=== PATIENT | male | born 1950 | race Caucasian/White ===

== ENCOUNTER 2019-06-19 18:33 | Outpatient (RCR) | payer MEDICARE, SELFPAY ==
[2019-06-10] MEDS: MEROPENEM 1 GM in SODIUM CHLORIDE 0.9% IV 100 ML IVPB ×2 (06:46→18:02)
--- NOTE | 2019-06-10 08:38 | PC.NURSE ---
Patient was here for OP IV antibiotics. All teaching given with understanding. IV antibiotics administered see MAR and work list. Tolerated infusions well. Safe exit of hospital. Will return this evening for pm IV dose. Port left accessed.
--- NOTE | 2019-06-10 18:45 | PC.NURSE ---
Patient here to receive IV Antibiotic. Port site remains accessed. Dressing clean dry and intact. Site flushed well with Normal Saline, good blood return received. Patient tolerated Antibiotic well. Port flushed with 20 ml of normal saline after Antibiotic finished. Port site remains accessed. Pt. denies any questions or concerns at discharge. Pt. left ambulatory accompanied by . Patient to come back at 0700 tomorrow.
[2019-06-11 00:22] LABS: Glucose Point of Care 93 (65-105)
[2019-06-11] MEDS: MEROPENEM 1 GM in SODIUM CHLORIDE 0.9% IV 100 ML IVPB ×2 (07:26→18:36)
--- NOTE | 2019-06-11 09:41 | PC.NURSE ---
Patient here for IV antibiotics. Port accessed, occlusive dressing clean, dry, and intact. Port flushes easily with good blood return. Patient tolerated infusions well. Port flushed with 20mL NS. Swab cap replaced. Port remains accessed. Patient denies any questions or concerns. Patient left per ambulation accompanied by . Patient to return tonight for next infusion.
--- NOTE | 2019-06-11 19:16 | PC.NURSE ---
pt port flushed 20mL NS, no complaints, pt is coming at 7:30 on thursday, will leave note for day shift, left ambulatory with , no s/sx of reaction or distress
[2019-06-12] MEDS: MEROPENEM 1 GM in SODIUM CHLORIDE 0.9% IV 100 ML IVPB ×2 (07:40→18:26)
--- NOTE | 2019-06-12 10:05 | PCDIET ---
Patient here for IV antibiotics. Port accessed when patient arrived. Tolerated infusion well. Port deaccessed per sterile technique, cleaned per sterile technique and reaccessed per sterile technique with 20G x.75in powerloc needle. Flushes easily with good blood return. Flushed with 20ml NS. Swab cap placed. Patient left per self ambulation with . Will return tonight for next dose.
--- NOTE | 2019-06-12 19:23 | PC.NURSE ---
Infusion completed. Port flushed as ordered. Patient tolerated infusion well
[2019-06-13] MEDS: MEROPENEM 1 GM in SODIUM CHLORIDE 0.9% IV 100 ML IVPB ×2 (08:15→18:45)
[2019-06-13 08:51] LABS: Vancomycin Trough 21.2 ug/mL (10.0-15.0)
--- NOTE | 2019-06-13 10:32 | PC.NURSE ---
0800 PATIENT HERE FOR DAILY IV ANTIBIOTICS ORDERED. PORT ALREADY ACCESSED. NO CONCERNS VOICED. VANCOMYCIN TROUGH LEVEL DRAWN SENT TO LAB. RESULTS NOTED FAXED TO DR. TAVREA. PROCEED WITH TODAYS DOSE AND MAY CHANGE TOMORROWS PER DR. ASTORGA OFFICE. BOTH MENOPENEM AND VANCOMYCIN ADMINISTERED. SEE MAR. TOLERATED BOTH WELL. WILL BE BACK THIS EVENING FOR MENOPENEM.
--- NOTE | 2019-06-13 18:45 | PC.NURSE ---
Pt. here to receive IV ATB. Port site remains accessed. Dressing clean dry and intact. Pot site flushed well, good blood return receive. IV ATB infusing per order. Pt. denies any needs. Call light at side.
--- NOTE | 2019-06-13 19:32 | PC.NURSE ---
Infusion completed. Catheter flushed as ordered. No ASE noted or reported at this time
[2019-06-14] MEDS: MEROPENEM 1 GM in SODIUM CHLORIDE 0.9% IV 100 ML IVPB ×2 (07:42→18:42)
--- NOTE | 2019-06-14 09:35 | PC.NURSE ---
Patient here for meropenem and vancomycin IV antibiotics for this a.m. Port a cath site asystomatic of s/sx of infection. Both antibiotics administered. see MAR. Tolerated antibiotics well. Safe exit of hospital.
--- NOTE | 2019-06-14 18:47 | PC.NURSE ---
HERE FOR OP ABX, PORT PREVIOUSLY ACCESSED, FLUSHED WITH SALINE AND MERIPENEM STARTED ORDERED, TOLERATED WELL, CALL LIGHT IN REACH
--- NOTE | 2019-06-14 19:12 | PC.NURSE ---
Infusion finished without difficulty. Port flushed with 20ml NS then capped and remains accessed. Patient tolerated infusion well.
[2019-06-15] MEDS: MEROPENEM 1 GM in SODIUM CHLORIDE 0.9% IV 100 ML IVPB ×2 (09:07→18:38)
--- NOTE | 2019-06-15 11:13 | PC.NURSE ---
Patient was here for 2 IV antibiotics. No concerns today voiced. Both IV antibiotics administered as ordered. see MAR. Port a cath asystomatic of s/sx of infection. Port stays accessed. Will be back this evening for 1 antibiotic. Safe exit of hospital.
[2019-06-16] MEDS: MEROPENEM 1 GM in SODIUM CHLORIDE 0.9% IV 100 ML IVPB ×2 (07:54→18:39)
--- NOTE | 2019-06-16 19:24 | PC.NURSE ---
Infusion completed, flushed with 20ml saline, swab cap applied, pt tolerated tx well, ambulated off of the unit.
[2019-06-17] MEDS: MEROPENEM 1 GM in SODIUM CHLORIDE 0.9% IV 100 ML IVPB ×2 (08:48→18:44)
[2019-06-17 09:15] LABS: Vancomycin Trough 13.6 ug/mL (10.0-15.0)
--- NOTE | 2019-06-17 09:42 | PC.NURSE ---
mick trough drawn and faxed to his office. tolerating infusion.
[2019-06-18] MEDS: MEROPENEM 1 GM in SODIUM CHLORIDE 0.9% IV 100 ML IVPB ×2 (08:08→18:32)
--- NOTE | 2019-06-18 10:10 | PC.NURSE ---
Patient here for IV infusion of Antibiotics. Port site remains accessed. Site clean and dressing intact. Port flushed with 20ml of saline, good blood return received. Patient tolerated IV Antibiotics well. Site flushed with 20 ml of NS at end of infusions. Site remains accessed. Pt. denies any questions or concerns. Patient discharge, left hospital ambulatory.
--- NOTE | 2019-06-18 18:30 | PC.NURSE ---
Patient here to receive IV Antibiotic infusion. Port site remains accessed. Site flushed well, goo blood return recieved. Pt. sitting up in chair resting. Denies any needs at this time.
--- NOTE | 2019-06-18 19:15 | PC.NURSE ---
Patient tolerated infusion well. Port flushed with 20ml NS and capped.
[2019-06-19] MEDS: MEROPENEM 1 GM in SODIUM CHLORIDE 0.9% IV 100 ML IVPB ×2 (08:05→18:42)
--- NOTE | 2019-06-19 09:56 | PC.NURSE ---
Patient here for 2 IV anbiotics infusions. No concerns voiced. Port already accessed and asystomatic of s/sx of infection. Antibiotics administered see MAR. Tolerated infusion well. Safe exit of hospital.
--- NOTE | 2019-06-19 18:40 | PC.NURSE ---
Patient here to receive IV antibiotic infusion. Port site remains accessed. Site clean, dry and intact. Port flushed well, good blood return received. Antibiotic started per order. Pt. sitting up in chair resting, denies any needs. Call light at side.
--- NOTE | 2019-06-19 19:20 | PC.NURSE ---
IV antibiotic finished infusing. Patient tolerated well. Port flushed with 20ml NS and capped. Port remains accessed.
== END 2019-09-08 23:59 | disposition home or self-care (01) ==
LOC: CHSTREATRM 18:33
PROVIDERS: PCP Internal Medicine
DX: J12.1 Respiratory syncytial virus pneumonia (principal); J20.5 Acute bronchitis due to respiratory syncytial virus; Z94.2 Lung transplant status; Z48.24 Encounter for aftercare following lung transplant
CPT/HCPCS: 36415; 80202; 96365; 96366; 96367; J0256; J2185; J3370

== ENCOUNTER 2019-06-20 07:41 | Outpatient (CLI) | payer MEDICARE, SELFPAY ==
[2019-06-20 09:54] LABS: Prothrombin Time 10.7 Seconds (9.64-11.0)
[2019-06-20 10:02] LABS: Alanine Aminotransferase 19 U/L (16-63); Albumin Level 3.1 g/dL (3.4-5.0); Alkaline Phosphatase 105 U/L (46-116); Anion Gap 8.9 mmol/L (7-16); Aspartate Amino Transferase 36 U/L (15-37); Bilirubin,Total 0.8 mg/dL (0.00-1.00); Blood Urea Nitrogen 42 mg/dL (7-18); Calcium 8.7 mg/dL (8.5-10.1); Carbon Dioxide 35 mmol/L (21-32); Chloride 104 mmol/L (98-108); Estimated Glomerular Filt Rate 50; Glucose 152 mg/dL (70-99); Osmolality Calculated 311 mOsm/kg (285-295); Potassium 3.9 mmol/L (3.5-5.1); Sodium 144 mmol/L (136-145); Total Protein 6.2 g/dL (6.4-8.2)
--- NOTE | 2019-06-20 10:08 | PC.NURSE ---
PATIENT FINISHED UP ANTIBIOTIC THERAPY LAST EVENING. HERE TODAY FOR WEEKLY PROLASTIN IV INFUSION. NO CONCERNS. PORT ALREADY ACCESSED AND ASYSTOMTATIC OF S/SX OF INFECTION. PROLASTIN IV INFUSION ADMINISTERED SEE JUL. PORT NEEDLE REMOVED. SAFE EXIT OF HOSPITAL.
== END 2019-06-20 07:42 | disposition home or self-care (01) ==
LOC: CHSLAB 07:43
PROVIDERS: PCP Internal Medicine; Visit Provider Internal Medicine Pulmonary Disease
DX: E88.01 Alpha-1-antitrypsin deficiency (principal); Z79.01 Long term (current) use of anticoagulants
CPT/HCPCS: 36415; 80053; 85610; 96365; J0256

== ENCOUNTER 2019-06-27 07:33 | Outpatient (CLI) | payer MEDICARE, SELFPAY ==
[2019-06-27] MEDS: HEPARIN SOD FLUSH 500 UNITS/5 ML SYRINGE IV PUSH (09:24)
--- NOTE | 2019-06-27 10:07 | PC.NURSE ---
PATIENT HERE FOR HIS WEEKLY PROLASTIN IV INFUSION. NO CONCERNS VOICED. PROLASTIN INFUSION ADMINISTERED ORDERED SEE JUL. TOLERATED IT WELL. SAFE EXIT OF HOSPITAL.
== END 2019-06-27 07:34 | disposition home or self-care (01) ==
PROVIDERS: PCP Internal Medicine; Visit Provider Internal Medicine Pulmonary Disease
DX: E88.01 Alpha-1-antitrypsin deficiency (principal)
CPT/HCPCS: 96365; J0256

== ENCOUNTER 2019-07-01 07:26 | Outpatient (CLI) | payer MEDICARE, SELFPAY ==
[2019-07-01 09:10] VITALS: BP 110/72; PULSE 101; RESP 20; TEMP 36.4; O2SAT 95
[2019-07-01] MEDS: ACETAMINOPHEN 325 MG TABLET 650 MG PO (09:11)
[2019-07-01 09:40] VITALS: BP 110/70; PULSE 100
[2019-07-01 10:16] VITALS: BP 110/68; PULSE 98
[2019-07-01 11:15] VITALS: BP 124/74; PULSE 86; O2SAT 95
[2019-07-01 11:45] VITALS: BP 122/74; PULSE 94; PULSE 98; RESP 20; O2SAT 94
[2019-07-01] MEDS: HEPARIN SOD FLUSH 500 UNITS/5 ML SYRINGE IV PUSH (12:35)
[2019-07-01 12:47] VITALS: BP 140/91
== END 2019-07-01 07:27 | disposition home or self-care (01) ==
PROVIDERS: PCP Internal Medicine; Visit Provider Internal Medicine Pulmonary Disease
DX: D80.1 Nonfamilial hypogammaglobulinemia (principal)
CPT/HCPCS: 96365; 96366; A9270; J1459

== ENCOUNTER 2019-07-04 07:40 | Outpatient (CLI) | payer MEDICARE, SELFPAY ==
[2019-07-04] MEDS: HEPARIN SOD FLUSH 500 UNITS/5 ML SYRINGE IV PUSH (09:31)
--- NOTE | 2019-07-04 10:17 | PC.NURSE ---
Tolerated weekly prolastin infusion well. SEE MAR. Safe exit of hospital.
== END 2019-07-04 07:41 | disposition home or self-care (01) ==
PROVIDERS: PCP Internal Medicine; Visit Provider Internal Medicine Pulmonary Disease
DX: E88.01 Alpha-1-antitrypsin deficiency (principal)
CPT/HCPCS: 96365; J0256

== ENCOUNTER 2019-07-12 07:52 | Outpatient (CLI) | payer MEDICARE, SELFPAY ==
[2019-07-12 08:32] LABS: INR 1.9; Prothrombin Time 19.1 Seconds (9.64-11.0)
[2019-07-12] MEDS: HEPARIN SOD FLUSH 500 UNITS/5 ML SYRINGE IV PUSH (08:38)
--- NOTE | 2019-07-12 09:20 | PC.NURSE ---
Patient tolerated IV Prolastin weekly infusion well. No concerns voiced. Safe exit of hospital.
== END 2019-07-12 07:53 | disposition home or self-care (01) ==
LOC: CHSLAB 08:02 → CHSTREATRM 08:12
PROVIDERS: PCP Internal Medicine; Visit Provider Internal Medicine Pulmonary Disease
DX: E88.01 Alpha-1-antitrypsin deficiency (principal); Z94.2 Lung transplant status; I82.509 Chronic embolism and thrombosis of unspecified deep veins of unspecified lower extremity
CPT/HCPCS: 36415; 85610; 96365; J0256

== ENCOUNTER 2019-07-18 07:35 | Outpatient (CLI) | payer MEDICARE, SELFPAY ==
[2019-07-18] MEDS: HEPARIN SOD FLUSH 500 UNITS/5 ML SYRINGE IV PUSH (09:15)
== END 2019-07-18 07:36 | disposition home or self-care (01) ==
PROVIDERS: PCP Internal Medicine; Visit Provider Internal Medicine Pulmonary Disease
DX: E88.01 Alpha-1-antitrypsin deficiency (principal)
CPT/HCPCS: 96365; J0256

== ENCOUNTER 2019-07-25 07:29 | Outpatient (CLI) | payer MEDICARE, SELFPAY ==
[2019-07-25] MEDS: HEPARIN SOD FLUSH 500 UNITS/5 ML SYRINGE IV PUSH (09:08)
--- NOTE | 2019-07-25 09:49 | PC.NURSE ---
PATIENT TOLERATED WEEKLY PROLASTIN INFUSION. NO CONCERNS. WILL RETURN NEXT THURSDAY. SAFE EXIT OF HOSPITAL.
== END 2019-07-25 07:30 | disposition home or self-care (01) ==
LOC: CHSTREATRM 07:31
PROVIDERS: PCP Internal Medicine; Visit Provider Internal Medicine Pulmonary Disease
DX: E88.01 Alpha-1-antitrypsin deficiency (principal)
CPT/HCPCS: 96365; J0256

== ENCOUNTER 2019-07-29 07:28 | Outpatient (CLI) | payer MEDICARE, SELFPAY ==
[2019-07-29] VITALS (8 sets, daily range): BP systolic 128–146; BP diastolic 80–93; PULSE 74–99; RESP 20; TEMP 36.9–37; O2SAT 98
[2019-07-29] MEDS: ACETAMINOPHEN 325 MG TABLET 650 MG PO (09:19)
--- NOTE | 2019-07-29 10:21 | PC.NURSE ---
IV INFUSING WITHOUT DIFFICULTY. PT TOLERATING WELL.
--- NOTE | 2019-07-29 13:14 | PC.NURSE ---
Next infusion scheduled. Pt has safe exit of hospital.
== END 2019-07-29 07:29 | disposition home or self-care (01) ==
PROVIDERS: PCP Internal Medicine; Visit Provider Internal Medicine Pulmonary Disease
DX: D80.1 Nonfamilial hypogammaglobulinemia (principal)
CPT/HCPCS: 96365; 96366; A9270; J1459

== ENCOUNTER 2019-08-01 07:28 | Outpatient (CLI) | payer MEDICARE, SELFPAY ==
[2019-08-01 09:16] LABS: Hematocrit 38.5 % (37.0-46.0); Mean Corpuscular HGB Conc 31.2 g/dL (32.0-36.0); Mean Corpuscular Hemoglobin 31.2 pg (27.0-31.0); Mean Platelet Volume 9.7 fl (8.7-11.0); Platelet Count Result 200 K/mm3 (150-420); Red Blood Count 3.85 M/mm3 (4.70-6.10); Red Cell Distribution Width 16.8 % (11.6-14.4); White Blood Count 8.5 K/mm3 (4.8-10.8)
[2019-08-01 09:31] LABS: Alanine Aminotransferase 11 U/L (16-63); Albumin Level 3.5 g/dL (3.4-5.0); Alkaline Phosphatase 90 U/L (46-116); Anion Gap 8.4 mmol/L (7-16); Aspartate Amino Transferase 34 U/L (15-37); Bilirubin,Total 0.5 mg/dL (0.00-1.00); Blood Urea Nitrogen 42 mg/dL (7-18); Calcium 8.8 mg/dL (8.5-10.1); Carbon Dioxide 33 mmol/L (21-32); Chloride 107 mmol/L (98-108); Estimated Glomerular Filt Rate 41; Glucose 182 mg/dL (70-99); Osmolality Calculated 313 mOsm/kg (285-295); Potassium 4.4 mmol/L (3.5-5.1); Sodium 144 mmol/L (136-145); Total Protein 7.2 g/dL (6.4-8.2)
[2019-08-01] MEDS: HEPARIN SOD FLUSH 500 UNITS/5 ML SYRINGE IV PUSH (09:32)
[2019-08-01 09:33] LABS: Band Neutrophils Percent 3 % (0-6); Basophils Absolute Manual 0.08 K/mm3 (0-0.1); Basophils Percent Manual 1 % (0-1); Eosinophils Absolute Manual 0.08 K/mm3 (0.02-0.5); Eosinophils Percent Manual 1 % (1-6); Lymphocytes Absolute Manual 0.85 K/mm3 (1.1-4.5); Lymphocytes Percent Manual 10 % (18-44); Metamyelocytes Percent 1 %; Monocytes Absolute Manual 0.59 K/mm3 (0.1-0.90); Monocytes Percent Manual 7 % (3-9); Neutrophils Percent Manual 77 % (46-73); Total Cells Counted 100
[2019-08-01 10:08] LABS: Platelet Estimate Adequate (Adequate)
--- NOTE | 2019-08-01 10:22 | PC.NURSE ---
Patient here for weekly prolastin IV infusion. Prolastin infusion administered without difficulty. See MAR. No concerns voiced. Safe exit of hospital.
[2019-08-03 10:38] LABS: Tacrolimus Prograf 5.1 mcg/L
== END 2019-08-01 07:29 | disposition home or self-care (01) ==
PROVIDERS: PCP Internal Medicine; Visit Provider Internal Medicine Pulmonary Disease
DX: E88.01 Alpha-1-antitrypsin deficiency (principal); Z48.24 Encounter for aftercare following lung transplant
CPT/HCPCS: 36415; 80053; 80197; 85025; 94010; 96365; J0256

== ENCOUNTER 2019-08-08 09:00 | Outpatient (CLI) | payer MEDICARE, SELFPAY ==
[2019-08-08 09:35] LABS: INR 1.5; Prothrombin Time 15.8 Seconds (9.64-11.0)
[2019-08-08] MEDS: HEPARIN SOD FLUSH 500 UNITS/5 ML SYRINGE IV PUSH (09:45)
--- NOTE | 2019-08-08 10:30 | PC.NURSE ---
PATIENT HERE FOR WEEKLY IV PROLASTIN INFUSION. NO CONCERNS VOICED. PROLASTIN INFUSION ADMINISTERED. TOLERATED WELL. SAFE EXIT OF HOSPITAL.
== END 2019-08-08 09:01 | disposition home or self-care (01) ==
PROVIDERS: PCP Internal Medicine; Visit Provider Internal Medicine Pulmonary Disease
DX: Z94.2 Lung transplant status (principal); I82.509 Chronic embolism and thrombosis of unspecified deep veins of unspecified lower extremity; E88.01 Alpha-1-antitrypsin deficiency
CPT/HCPCS: 36415; 85610; 96365; J0256

== ENCOUNTER 2019-08-15 08:59 | Outpatient (CLI) | payer MEDICARE, SELFPAY ==
[2019-08-15] MEDS: HEPARIN SOD FLUSH 500 UNITS/5 ML SYRINGE IV PUSH (09:48)
--- NOTE | 2019-08-15 10:33 | PC.NURSE ---
Patient here for weekly Prolastin infusion. No concerns. Prolastin infusion administered. Tolerated it well. Safe exit of hospital.
== END 2019-08-15 09:00 | disposition home or self-care (01) ==
LOC: CHSTREATRM 09:00
PROVIDERS: PCP Internal Medicine; Visit Provider Internal Medicine Pulmonary Disease
DX: E88.01 Alpha-1-antitrypsin deficiency (principal)
CPT/HCPCS: 96365; J0256

== ENCOUNTER 2019-08-22 08:32 | Outpatient (CLI) | payer MEDICARE, SELFPAY ==
[2019-08-22 09:13] LABS: INR 3.5; Prothrombin Time 34.9 Seconds (9.64-11.0)
[2019-08-22] MEDS: HEPARIN SOD FLUSH 500 UNITS/5 ML SYRINGE IV PUSH (09:26)
--- NOTE | 2019-08-22 10:07 | PC.NURSE ---
Patient here for weekly Prolastin infusion. No concerns voiced. Prolastin infusion administered. Tolerated it well. Safe exit of hospital.
== END 2019-08-22 08:33 | disposition home or self-care (01) ==
LOC: CHSTREATRM 08:35
PROVIDERS: PCP Internal Medicine; Visit Provider Internal Medicine Pulmonary Disease
DX: Z94.2 Lung transplant status (principal); I82.509 Chronic embolism and thrombosis of unspecified deep veins of unspecified lower extremity; E88.01 Alpha-1-antitrypsin deficiency
CPT/HCPCS: 36415; 85610; 96365; J0256

== ENCOUNTER 2019-08-26 08:55 | Outpatient (CLI) | payer MEDICARE, SELFPAY ==
[2019-08-26] VITALS (9 sets, daily range): BP systolic 113–143; BP diastolic 78–89; PULSE 68–78; RESP 16–18; TEMP 36.6; O2SAT 97–100
[2019-08-26] MEDS: HEPARIN SOD FLUSH 500 UNITS/5 ML SYRINGE IV PUSH (14:20)
== END 2019-08-26 08:56 | disposition home or self-care (01) ==
PROVIDERS: PCP Internal Medicine; Visit Provider Internal Medicine Pulmonary Disease
DX: D80.1 Nonfamilial hypogammaglobulinemia (principal)
CPT/HCPCS: 96365; 96367; J0256; J1459

== ENCOUNTER 2019-08-29 08:47 | Outpatient (CLI) | payer MEDICARE, SELFPAY ==
[2019-08-29 09:21] LABS: INR 1.6; Prothrombin Time 16.1 Seconds (9.64-11.0)
[2019-08-29] MEDS: HEPARIN SOD FLUSH 500 UNITS/5 ML SYRINGE IV PUSH (09:38)
--- NOTE | 2019-08-29 11:27 | PC.NURSE ---
Patient here for weekly Prolastin IV infusion. No concerns. Prolastin infusion administered. Tolerated well. Safe exit of hospital.
== END 2019-08-29 08:48 | disposition home or self-care (01) ==
PROVIDERS: PCP Internal Medicine; Visit Provider Internal Medicine Pulmonary Disease
DX: E88.01 Alpha-1-antitrypsin deficiency (principal); Z94.2 Lung transplant status; I82.509 Chronic embolism and thrombosis of unspecified deep veins of unspecified lower extremity
CPT/HCPCS: 36415; 85610; 96365; J0256

== ENCOUNTER 2019-09-05 08:31 | Outpatient (CLI) | payer MEDICARE, SELFPAY ==
[2019-09-05] MEDS: HEPARIN SOD FLUSH 500 UNITS/5 ML SYRINGE IV PUSH (09:08)
[2019-09-05 09:13] LABS: INR 1.2
--- NOTE | 2019-09-05 09:59 | PC.NURSE ---
Patient here for weekly Prolastin infusion. No concerns. Prolastin infusion administered. Tolerated well. Safe discharge from hospital.
== END 2019-09-05 08:32 | disposition home or self-care (01) ==
PROVIDERS: PCP Internal Medicine; Visit Provider Internal Medicine Pulmonary Disease
DX: E88.01 Alpha-1-antitrypsin deficiency (principal); Z94.2 Lung transplant status; I82.509 Chronic embolism and thrombosis of unspecified deep veins of unspecified lower extremity
CPT/HCPCS: 36415; 85610; 96365; J0256

== ENCOUNTER 2019-09-12 13:29 | Outpatient (CLI) | payer MEDICARE, SELFPAY ==
[2019-09-12] MEDS: ZOLEDRONIC ACID 5 MG/100 ML 100 ML 400 MG IVPB (14:11)
== END 2019-09-12 13:30 | disposition home or self-care (01) ==
PROVIDERS: PCP Internal Medicine; Visit Provider Internal Medicine Pulmonary Disease
DX: E88.01 Alpha-1-antitrypsin deficiency (principal)
CPT/HCPCS: J0256

== ENCOUNTER 2019-09-19 08:46 | Outpatient (CLI) | payer MEDICARE, SELFPAY ==
[2019-09-19] MEDS: HEPARIN SOD FLUSH 500 UNITS/5 ML SYRINGE IV PUSH (10:20)
--- NOTE | 2019-09-19 10:25 | PC.NURSE ---
Prolastin infused. Pt tolerated well. Has no questions or concerns. Discharged to home per self.
== END 2019-09-19 08:47 | disposition home or self-care (01) ==
LOC: CHSTREATRM 08:49
PROVIDERS: PCP Internal Medicine; Visit Provider Internal Medicine Pulmonary Disease
DX: E88.01 Alpha-1-antitrypsin deficiency (principal); Z94.2 Lung transplant status; I82.509 Chronic embolism and thrombosis of unspecified deep veins of unspecified lower extremity
CPT/HCPCS: 96365; J0256

== ENCOUNTER 2019-09-23 08:44 | Outpatient (CLI) | payer MEDICARE, SELFPAY ==
[2019-09-23] VITALS (8 sets, daily range): BP systolic 118–138; BP diastolic 72–98; PULSE 74–78; RESP 16; TEMP 36.6–37.1; O2SAT 99–100
[2019-09-23 10:21] LABS: INR 1.9
== END 2019-09-23 08:45 | disposition home or self-care (01) ==
PROVIDERS: PCP Internal Medicine; Visit Provider Internal Medicine Pulmonary Disease
DX: D80.1 Nonfamilial hypogammaglobulinemia (principal); Z94.2 Lung transplant status; I82.509 Chronic embolism and thrombosis of unspecified deep veins of unspecified lower extremity
CPT/HCPCS: 36415; 85610; 96365; 96366; J1459

== ENCOUNTER 2019-09-26 08:54 | Outpatient (CLI) | payer MEDICARE, SELFPAY ==
[2019-09-26] MEDS: SALINE LOCK FLUSH 10 ML IV PUSH (10:29)
[2019-09-26] MEDS: HEPARIN SOD FLUSH 500 UNITS/5 ML SYRINGE IV PUSH (10:29)
== END 2019-09-26 08:55 | disposition home or self-care (01) ==
PROVIDERS: PCP Internal Medicine; Visit Provider Internal Medicine Pulmonary Disease
DX: E88.01 Alpha-1-antitrypsin deficiency (principal)
CPT/HCPCS: 96365; J0256

== ENCOUNTER 2019-10-03 08:41 | Outpatient (CLI) | payer MEDICARE, SELFPAY ==
[2019-10-03] MEDS: HEPARIN SOD FLUSH 500 UNITS/5 ML SYRINGE IV PUSH (10:30)
== END 2019-10-03 08:42 | disposition home or self-care (01) ==
PROVIDERS: PCP Internal Medicine; Visit Provider Internal Medicine Pulmonary Disease
DX: E88.01 Alpha-1-antitrypsin deficiency (principal)
CPT/HCPCS: 96365; 96366; J0256

== ENCOUNTER 2019-10-11 14:12 | Outpatient (CLI) | payer MEDICARE, SELFPAY ==
[2019-10-11] MEDS: HEPARIN SOD FLUSH 500 UNITS/5 ML SYRINGE IV PUSH (15:50)
== END 2019-10-11 14:13 | disposition home or self-care (01) ==
PROVIDERS: PCP Internal Medicine; Visit Provider Internal Medicine Pulmonary Disease
DX: E88.01 Alpha-1-antitrypsin deficiency (principal)
CPT/HCPCS: 96365; J0256

== ENCOUNTER 2019-10-17 08:34 | Outpatient (CLI) | payer MEDICARE, SELFPAY ==
[2019-10-17] MEDS: HEPARIN SOD FLUSH 500 UNITS/5 ML SYRINGE IV PUSH (10:10)
== END 2019-10-17 08:35 | disposition home or self-care (01) ==
PROVIDERS: PCP Internal Medicine; Visit Provider Internal Medicine Pulmonary Disease
DX: E88.01 Alpha-1-antitrypsin deficiency (principal)
CPT/HCPCS: 96365; J0256

== ENCOUNTER 2019-10-24 08:17 | Outpatient (CLI) | payer MEDICARE, SELFPAY ==
[2019-10-24] MEDS: HEPARIN SOD FLUSH 500 UNITS/5 ML SYRINGE IV PUSH (09:45)
== END 2019-10-24 08:18 | disposition home or self-care (01) ==
LOC: CHSTREATRM 08:19
PROVIDERS: PCP Internal Medicine; Visit Provider Internal Medicine Pulmonary Disease
DX: E88.01 Alpha-1-antitrypsin deficiency (principal)
CPT/HCPCS: 96365; J0256

== ENCOUNTER 2019-10-25 08:27 | Outpatient (CLI) | payer MEDICARE, SELFPAY ==
[2019-10-25] VITALS (7 sets, daily range): BP systolic 128–160; BP diastolic 78–90; PULSE 82–88; RESP 20; TEMP 36.6; O2SAT 96–97
[2019-10-25] MEDS: HEPARIN SOD FLUSH 500 UNITS/5 ML SYRINGE IV PUSH (08:56)
== END 2019-10-25 08:28 | disposition home or self-care (01) ==
LOC: CHSTREATRM 08:29
PROVIDERS: PCP Internal Medicine; Visit Provider Internal Medicine Pulmonary Disease
DX: D80.1 Nonfamilial hypogammaglobulinemia (principal)
CPT/HCPCS: 96365; 96366; 96367; J1459

== ENCOUNTER 2019-10-28 09:18 | Outpatient (CLI) | payer MEDICARE, SELFPAY ==
[2019-10-28 09:37] LABS: INR 1.9; Prothrombin Time 18.8 Seconds (9.64-11.0)
== END 2019-10-28 09:19 | disposition home or self-care (01) ==
LOC: CHSLAB 09:19
PROVIDERS: PCP Internal Medicine; Visit Provider Internal Medicine Pulmonary Disease
DX: Z94.2 Lung transplant status (principal); I82.509 Chronic embolism and thrombosis of unspecified deep veins of unspecified lower extremity
CPT/HCPCS: 36415; 85610

== ENCOUNTER 2019-10-31 08:54 | Outpatient (CLI) | payer MEDICARE, SELFPAY ==
[2019-10-31] MEDS: HEPARIN SOD FLUSH 500 UNITS/5 ML SYRINGE IV PUSH (10:45)
== END 2019-10-31 08:55 | disposition home or self-care (01) ==
PROVIDERS: PCP Internal Medicine; Visit Provider Internal Medicine Pulmonary Disease
DX: E88.01 Alpha-1-antitrypsin deficiency (principal)
CPT/HCPCS: 96365; J0256

== ENCOUNTER 2019-11-07 08:28 | Outpatient (CLI) | payer MEDICARE, SELFPAY ==
--- NOTE | 2019-11-07 08:35 | PC.NURSE ---
Pt to room 227 amb per self. Up in chair. A&Ox3. Has no questions. Complains of some SOB this am. ON home O2 at present. Oriented to room. Call conner in reach. Reminded to call with needs.
[2019-11-07] MEDS: HEPARIN SOD FLUSH 500 UNITS/5 ML SYRINGE IV PUSH (09:39)
--- NOTE | 2019-11-07 10:03 | PC.NURSE ---
Prolastin infused at 09. Pt discharged to home amb per self at 0945. MAR would not allow Med to be infused at real time of 937.
== END 2019-11-07 08:29 | disposition home or self-care (01) ==
LOC: CHSTREATRM 08:30
PROVIDERS: PCP Internal Medicine; Visit Provider Internal Medicine Pulmonary Disease
DX: E88.01 Alpha-1-antitrypsin deficiency (principal)
CPT/HCPCS: 96365; J0256

== ENCOUNTER 2019-11-14 14:11 | Outpatient (CLI) | payer MEDICARE, SELFPAY ==
--- NOTE | 2019-11-14 14:55 | PC.NURSE ---
PT TO ROOM 228 AMB PER SELF. A&OX3. HAS NO COMPLAINTS. ORIENTED TO ROOM. CALL BRIONES IN REACH. REMINDED TO CALL WITH NEEDS.
[2019-11-14] MEDS: HEPARIN SOD FLUSH 500 UNITS/5 ML SYRINGE IV PUSH (15:31)
--- NOTE | 2019-11-14 15:33 | PC.NURSE ---
PT DISCHARGED TO HOME PER SELF WITHOUT COMPLAINT.
== END 2019-11-14 14:12 | disposition home or self-care (01) ==
PROVIDERS: PCP Internal Medicine; Visit Provider Internal Medicine Pulmonary Disease
DX: E88.01 Alpha-1-antitrypsin deficiency (principal)
CPT/HCPCS: 96365; J0256

== ENCOUNTER 2019-11-21 08:41 | Outpatient (CLI) | payer MEDICARE, SELFPAY ==
[2019-11-21] MEDS: HEPARIN SOD FLUSH 500 UNITS/5 ML SYRINGE IV PUSH (09:22)
[2019-11-21 09:25] VITALS: BP 139/70; PULSE 68; RESP 14; TEMP 36.6; O2SAT 95
--- NOTE | 2019-11-21 10:13 | PC.NURSE ---
PATIENT TOLERATED WEEKLY PROLASTIN IV INFUSION WELL. NO CONCERNS VOICED. SAFE EXIT OF HOSPITAL.
== END 2019-11-21 08:42 | disposition home or self-care (01) ==
LOC: CHSTREATRM 08:44
PROVIDERS: PCP Internal Medicine; Visit Provider Internal Medicine Pulmonary Disease
DX: E88.01 Alpha-1-antitrypsin deficiency (principal)
CPT/HCPCS: 96365; J0256

== ENCOUNTER 2019-11-24 08:40 | Outpatient (CLI) | payer MEDICARE, SELFPAY ==
[2019-11-24 09:05] VITALS: BP 140/92; PULSE 84; RESP 16; TEMP 36.6; O2SAT 100
[2019-11-24 09:34] VITALS: BP 142/80; PULSE 88; RESP 14; O2SAT 100
[2019-11-24 10:00] VITALS: BP 154/88; PULSE 80; RESP 12; O2SAT 95
[2019-11-24 10:33] VITALS: BP 149/89; PULSE 88; RESP 16; O2SAT 97
[2019-11-24 11:50] VITALS: BP 148/86; PULSE 78; RESP 14; TEMP 36.6; O2SAT 97
[2019-11-24 13:44] VITALS: BP 150/87; PULSE 68; RESP 14; TEMP 36.6; O2SAT 100
--- NOTE | 2019-11-24 13:50 | PC.NURSE ---
0900 Patient here for monthly Gamma Gobulin (Privigen IV infusion). No concerns voiced. Patient wearing oxygen at 3l/min. per home O2. Patient reports the weather has made his breathing a little rougher right now. Patient also reports his lung doctor up his predinsone starting today to help with that. Patient took tylenol and benadryl pre meds prior to coming as he does usually. Port accessed and IV Privigen infusion started. 1445 Patient tolerated infusion well. Port deaccessed and safe exit of hospital.
== END 2019-11-24 08:41 | disposition home or self-care (01) ==
PROVIDERS: PCP Internal Medicine; Visit Provider Internal Medicine Pulmonary Disease
DX: D80.1 Nonfamilial hypogammaglobulinemia (principal)
CPT/HCPCS: 96365; 96366; J1459

== ENCOUNTER 2019-11-28 08:20 | Outpatient (CLI) | payer MEDICARE, SELFPAY ==
[2019-11-28 08:51] VITALS: BP 146/88; PULSE 92; RESP 16; TEMP 36.8; O2SAT 96
[2019-11-28] MEDS: HEPARIN SOD FLUSH 500 UNITS/5 ML SYRINGE IV PUSH (09:42)
--- NOTE | 2019-11-28 09:43 | PC.NURSE ---
PATIENT HERE FOR WEEKLY IV PROLASTIN INFUSION. INFUSION ADMINISTERED (SEE JUL). PATIENT TOLERATED IT WELL. SCHEDULED FOR NEXT Thursday12/05/19 @ 0830. SAFE EXIT OF HOSPITAL.
== END 2019-11-28 08:21 | disposition home or self-care (01) ==
PROVIDERS: PCP Internal Medicine; Visit Provider Internal Medicine Pulmonary Disease
DX: E88.01 Alpha-1-antitrypsin deficiency (principal)
CPT/HCPCS: 96365; J0256

== ENCOUNTER 2019-12-05 08:44 | Outpatient (CLI) | payer MEDICARE, SELFPAY ==
[2019-12-05 09:09] VITALS: BP 140/83; PULSE 92; RESP 20; TEMP 36.6; O2SAT 96
[2019-12-05] MEDS: HEPARIN SOD FLUSH 500 UNITS/5 ML SYRINGE IV PUSH (10:06)
--- NOTE | 2019-12-05 10:07 | PC.NURSE ---
0900 Patient tolerated weekly IV infusion of Prolastin well. NO concerns. Scheduled for next Thursday12/12/19 at 0900. Safe exit of hospital.
== END 2019-12-05 08:45 | disposition home or self-care (01) ==
LOC: CHSTREATRM 08:46
PROVIDERS: PCP Internal Medicine; Visit Provider Internal Medicine Pulmonary Disease
DX: E88.01 Alpha-1-antitrypsin deficiency (principal)
CPT/HCPCS: 96365; J0256

== ENCOUNTER 2019-12-12 07:33 | Outpatient (CLI) | payer MEDICARE, SELFPAY ==
[2019-12-12 09:41] LABS: INR 1.7; Prothrombin Time 17.3 Seconds (9.64-11.0)
[2019-12-12] MEDS: HEPARIN SOD FLUSH 500 UNITS/5 ML SYRINGE IV PUSH (10:19)
--- NOTE | 2019-12-12 10:21 | PC.NURSE ---
Here for weekly Prolastin infusion. Prolastin administered. Patient tolerated well. NO concerns voiced. Safe exit of hospital. Next appointment December 19, 2019 0900
== END 2019-12-12 07:34 | disposition home or self-care (01) ==
LOC: CHSTREATRM 07:36
PROVIDERS: PCP Internal Medicine; Visit Provider Internal Medicine Pulmonary Disease
DX: E88.01 Alpha-1-antitrypsin deficiency (principal); Z94.2 Lung transplant status
CPT/HCPCS: 36415; 85610; 96365; J0256

== ENCOUNTER 2019-12-19 08:38 | Outpatient (CLI) | payer MEDICARE, SELFPAY ==
[2019-12-19 08:52] VITALS: BP 138/80; PULSE 88; RESP 18; TEMP 36.6; O2SAT 96
[2019-12-19] MEDS: HEPARIN SOD FLUSH 500 UNITS/5 ML SYRINGE IV PUSH (09:49)
--- NOTE | 2019-12-19 09:51 | PC.NURSE ---
Tolerated weekly IV Prolastin infusion well. No concerns voiced. Safe exit of hospital.
== END 2019-12-19 08:39 | disposition home or self-care (01) ==
LOC: CHSTREATRM 08:40
PROVIDERS: PCP Internal Medicine; Visit Provider Internal Medicine Pulmonary Disease
DX: E88.01 Alpha-1-antitrypsin deficiency (principal)
CPT/HCPCS: 96365; J0256

== ENCOUNTER 2019-12-22 07:33 | Outpatient (CLI) | payer MEDICARE, SELFPAY ==
[2019-12-22 09:10] VITALS: BP 130/82; PULSE 92; RESP 18; TEMP 36.4; O2SAT 99
[2019-12-22 09:42] VITALS: BP 137/84; PULSE 88; RESP 14; O2SAT 99
[2019-12-22 10:11] VITALS: BP 132/79; PULSE 88; RESP 14; O2SAT 99
[2019-12-22 11:17] VITALS: BP 130/78; PULSE 88; RESP 16; O2SAT 98
[2019-12-22 13:49] VITALS: BP 128/70; PULSE 92; RESP 18; O2SAT 98
--- NOTE | 2019-12-22 13:52 | PC.NURSE ---
1400 Patient tolerated monthly Gamma (Privagen) IV infusion well. No concerns voiced. Safe exit of hospital.
== END 2019-12-22 07:34 | disposition home or self-care (01) ==
LOC: CHSTREATRM 07:35
PROVIDERS: PCP Internal Medicine; Visit Provider Internal Medicine Pulmonary Disease
DX: D80.1 Nonfamilial hypogammaglobulinemia (principal)
CPT/HCPCS: 96365; 96366; J1459

== ENCOUNTER 2019-12-26 08:28 | Outpatient (CLI) | payer MEDICARE, SELFPAY ==
[2019-12-26] MEDS: HEPARIN SOD FLUSH 500 UNITS/5 ML SYRINGE IV PUSH (09:40)
--- NOTE | 2019-12-26 09:45 | PC.NURSE ---
Patient left upper chest port-a-cath medial site discontinued following proper procedure. Dressing applied to puncture site.
== END 2019-12-26 08:29 | disposition home or self-care (01) ==
PROVIDERS: PCP Internal Medicine; Visit Provider Internal Medicine Pulmonary Disease
DX: E88.01 Alpha-1-antitrypsin deficiency (principal)
CPT/HCPCS: 96365; J0256

== ENCOUNTER 2020-01-02 08:33 | Outpatient (CLI) | payer MEDICARE, SELFPAY ==
[2020-01-02 08:48] VITALS: BP 129/80; PULSE 88; RESP 18; TEMP 36.7; O2SAT 97
[2020-01-02] MEDS: HEPARIN SOD FLUSH 500 UNITS/5 ML SYRINGE IV PUSH (09:10)
--- NOTE | 2020-01-02 09:54 | PC.NURSE ---
Patient here for weekly IV Prolastin infusion. No concerns voiced. Tolerated infusion well. Safe exit of hospital.
== END 2020-01-02 08:34 | disposition home or self-care (01) ==
LOC: CHSTREATRM 08:35
PROVIDERS: PCP Internal Medicine; Visit Provider Internal Medicine Pulmonary Disease
DX: E88.01 Alpha-1-antitrypsin deficiency (principal)
CPT/HCPCS: 96365; J0256

== ENCOUNTER 2020-01-09 08:07 | Outpatient (CLI) | payer MEDICARE, SELFPAY ==
[2020-01-09 08:28] VITALS: BP 136/80; PULSE 88; RESP 14; TEMP 36.6; O2SAT 97
[2020-01-09] MEDS: HEPARIN SOD FLUSH 500 UNITS/5 ML SYRINGE IV PUSH (08:47)
--- NOTE | 2020-01-09 09:24 | PC.NURSE ---
Patient here for weekly Prolastin IV infusion. No concerns voiced. Patient reports doing pretty good. Prolastin administered (See Mar). Tolerated well. Safe exit of hospital. Will return Next Thursday at 1300 for infusion.
== END 2020-01-09 08:08 | disposition home or self-care (01) ==
LOC: CHSTREATRM 08:09
PROVIDERS: PCP Internal Medicine; Visit Provider Internal Medicine Pulmonary Disease
DX: E88.01 Alpha-1-antitrypsin deficiency (principal); T86.812 Lung transplant infection
CPT/HCPCS: 87070; 87077; 87186; 87205; 96365; J0256

== ENCOUNTER 2020-01-16 12:54 | Outpatient (CLI) | payer MEDICARE, SELFPAY ==
[2020-01-16] MEDS: HEPARIN SOD FLUSH 500 UNITS/5 ML SYRINGE IV PUSH (14:15)
== END 2020-01-16 12:55 | disposition home or self-care (01) ==
PROVIDERS: PCP Internal Medicine; Visit Provider Internal Medicine Pulmonary Disease
DX: D80.1 Nonfamilial hypogammaglobulinemia (principal)
CPT/HCPCS: 96365; J0256

== ENCOUNTER 2020-01-17 18:29 | Outpatient (CLI) | payer MEDICARE, SELFPAY ==
--- NOTE | 2020-01-17 19:25 | PC.NURSE ---
Patient here for IV Antibiotic infusion. Tolerated port access well. No adverse reactions noted to IV Antibiotic. Patient discharged, left ambulatory, denies any questions at discharge.
== END 2020-01-17 18:30 | disposition home or self-care (01) ==
PROVIDERS: PCP Internal Medicine; Visit Provider Internal Medicine Pulmonary Disease
DX: J20.8 Acute bronchitis due to other specified organisms (principal); Z94.2 Lung transplant status
CPT/HCPCS: 96365; J0713

== ENCOUNTER 2020-01-19 07:09 | Outpatient (CLI) | payer MEDICARE, SELFPAY ==
[2020-01-19] MEDS: ACETAMINOPHEN 325 MG TABLET 650 MG PO (09:26)
[2020-01-19 09:33] VITALS: BP 157/86; PULSE 88; RESP 20; O2SAT 95
[2020-01-19 10:00] VITALS: BP 138/78; PULSE 88; RESP 16; O2SAT 95
[2020-01-19 10:30] VITALS: BP 148/75; PULSE 88; RESP 18; O2SAT 96
[2020-01-19 11:05] VITALS: BP 130/78; PULSE 80; RESP 14; O2SAT 95
--- NOTE | 2020-01-19 12:30 | PC.NURSE ---
1200 Privigen infusing at 100 m/hr. No concerns voiced. Eating lunch.
[2020-01-19 14:15] VITALS: BP 129/76; PULSE 80; RESP 14; TEMP 36.8; O2SAT 99
--- NOTE | 2020-01-19 15:02 | PC.NURSE ---
0900 Patient here for monthly Privigen IV infusion. No concerns voiced. Port already accessed. Privigen administered. Tolerated well. Safe exit of hospital.
== END 2020-01-19 07:10 | disposition home or self-care (01) ==
LOC: CHSTREATRM 07:12
PROVIDERS: PCP Internal Medicine; Visit Provider Internal Medicine Pulmonary Disease
DX: D80.1 Nonfamilial hypogammaglobulinemia (principal)
CPT/HCPCS: 96365; 96366; A9270; J0713; J1459

== ENCOUNTER 2020-01-24 07:11 | Outpatient (CLI) | payer MEDICARE, SELFPAY ==
[2020-01-24] MEDS: HEPARIN SOD FLUSH 500 UNITS/5 ML SYRINGE IV PUSH (09:54)
--- NOTE | 2020-01-24 09:54 | PCDIET ---
PATIENT HERE FOR WEEKLY PROLASTIN INFUSION. PROLASTIN IV INFUSION ADMINISTERED. SEE MAR. TOLERATED WELL. SAFE EXIT OF HOSPITAL. WILL BE BACK LATER THIS AT 7 PM FOR EVENING DOSE.
== END 2020-01-24 07:12 | disposition home or self-care (01) ==
LOC: CHSTREATRM 07:13
PROVIDERS: PCP Internal Medicine; Visit Provider Internal Medicine Pulmonary Disease
DX: E88.01 Alpha-1-antitrypsin deficiency (principal)
CPT/HCPCS: 96365; J0256; J0713

== ENCOUNTER 2020-01-25 07:17 | Outpatient (CLI) | payer MEDICARE, SELFPAY ==
[2020-01-25 08:08] LABS: INR 2.7; Prothrombin Time 27.2 Seconds (9.64-11.0)
== END 2020-01-25 07:18 | disposition home or self-care (01) ==
PROVIDERS: PCP Internal Medicine; Visit Provider Internal Medicine Pulmonary Disease
DX: Z94.2 Lung transplant status (principal); I82.509 Chronic embolism and thrombosis of unspecified deep veins of unspecified lower extremity
CPT/HCPCS: 36415; 85610; 96365; J0713

== ENCOUNTER 2020-01-30 07:44 | Outpatient (CLI) | payer MEDICARE, SELFPAY ==
[2020-01-30] MEDS: HEPARIN SOD FLUSH 500 UNITS/5 ML SYRINGE IV PUSH (09:15)
== END 2020-01-30 07:45 | disposition home or self-care (01) ==
PROVIDERS: PCP Internal Medicine; Visit Provider Internal Medicine Pulmonary Disease
DX: E88.01 Alpha-1-antitrypsin deficiency (principal)
CPT/HCPCS: 96365; J0256; J0713

== ENCOUNTER 2020-01-31 07:21 | Outpatient (RCR) | payer MEDICARE, SELFPAY ==
[2020-01-18 07:34] VITALS: BP 134/80; PULSE 88; RESP 18; TEMP 36.9; O2SAT 96
[2020-01-18] MEDS: HEPARIN SOD FLUSH 500 UNITS/5 ML SYRINGE IV PUSH ×2 (07:47→18:52)
--- NOTE | 2020-01-18 08:29 | PC.NURSE ---
0745 Here for IV Fortaz daily q 12 hours day 2 #1. Medication administered. Tolerated well. Safe exit of hospital.
[2020-01-19 07:31] VITALS: BP 131/70; PULSE 88; RESP 18; TEMP 36.6; O2SAT 97
--- NOTE | 2020-01-19 07:55 | PC.NURSE ---
0720 Here for daily IV Fortaz 2 x/day- day 2. No concerns voiced. Port already accessed. Fortaz administered. Tolerated well. Safe exit to cardiac rehab then coming back for IV gamma (which will be on different account number.)
[2020-01-20] MEDS: HEPARIN SOD FLUSH 500 UNITS/5 ML SYRINGE IV PUSH ×2 (07:21→19:39)
[2020-01-20 07:24] VITALS: BP 138/87; PULSE 92; RESP 18; TEMP 36.6; O2SAT 97
--- NOTE | 2020-01-20 08:49 | PC.NURSE ---
[id number] Patient here for Fortaz IV antibiotic therapy 2 x/day. No concerns voiced. Port needle already accessed. Fortaz administered see JUL. Port needle left accessed. Tolerated infusion well. Safe exit of hospital.
--- NOTE | 2020-01-20 19:13 | PC.NURSE ---
Patient port a cath flushed without difficulty. IV infusion started.
--- NOTE | 2020-01-20 22:53 | PC.NURSE ---
[id number] @ 1930 Patient's IV completed. Port a cath needle removed. Patient tolerated well.
[2020-01-21] MEDS: HEPARIN SOD FLUSH 500 UNITS/5 ML SYRINGE IV PUSH ×2 (08:05→19:32)
--- NOTE | 2020-01-21 19:32 | PC.NURSE ---
Antibiotic completed. Port flusehd as ordered
[2020-01-22 07:30] VITALS: BP 159/90; PULSE 102; RESP 16; TEMP 36.6; O2SAT 94
[2020-01-22] MEDS: HEPARIN SOD FLUSH 500 UNITS/5 ML SYRINGE IV PUSH ×2 (07:56→18:54)
--- NOTE | 2020-01-22 08:00 | PC.NURSE ---
PATIENT HERE FOR A.M. DOSE OF FORTAZ IV GETTING IT 2X/DAY. NO CONCERNS VOICED. FORTAZ ADMINISTERED SEE JUL. SAFE EXIT OF HOSPITAL. WILL BE BACK AT 7 PM TONIGHT.
[2020-01-23 07:10] VITALS: BP 144/89; PULSE 102; RESP 18; TEMP 36.6; O2SAT 99
[2020-01-23] MEDS: HEPARIN SOD FLUSH 500 UNITS/5 ML SYRINGE IV PUSH ×2 (08:00→19:43)
--- NOTE | 2020-01-23 08:02 | PC.NURSE ---
[id number] Here for a.m. dose of Fortaz IV bid daily day 6. No concerns voiced. Fortaz administered see JUL. Tolerated well. Safe exit of hospital.
--- NOTE | 2020-01-23 19:41 | PC.NURSE ---
Patient IV therapy completed. Line flushed with NS and Heparin. Patient tolerated well.
[2020-01-24 07:37] VITALS: BP 156/87; PULSE 100; RESP 18; O2SAT 98
--- NOTE | 2020-01-24 07:46 | PC.NURSE ---
0700 Here for IV Fortaz a.m. dose of bid day 7. No concerns. Fortaz administered. Tolerated well. SAfe exit to cardiac rehab. Will return for different weekly infusion of Prolastin on different account. Will come this evening for 7 pm dose of Fortaz.
[2020-01-24] MEDS: HEPARIN SOD FLUSH 500 UNITS/5 ML SYRINGE IV PUSH (19:45)
--- NOTE | 2020-01-24 19:56 | PC.NURSE ---
Patient port a cath flushed without difficulty. IV Fortaz infused. Port needle removed, 2x2 and tape applied. Patient tolerated well.
[2020-01-25] MEDS: HEPARIN SOD FLUSH 500 UNITS/5 ML SYRINGE IV PUSH ×2 (07:50→19:29)
--- NOTE | 2020-01-25 19:37 | PC.NURSE ---
Patient here for IV ABT. Port flushed without difficulty. After IV treatment port flushed again and new cap applied. Patient tolerated well.
[2020-01-26] MEDS: HEPARIN SOD FLUSH 500 UNITS/5 ML SYRINGE IV PUSH ×2 (07:28→18:47)
--- NOTE | 2020-01-26 19:21 | PC.NURSE ---
Patient tolerated IV ABT well. Port a cath flushed with NS and Heparin Flush. Sterile cap applied.
[2020-01-27] MEDS: HEPARIN SOD FLUSH 500 UNITS/5 ML SYRINGE IV PUSH (08:12)
[2020-01-28 08:00] VITALS: BP 150/79; PULSE 102; RESP 18; TEMP 36.6; O2SAT 98
[2020-01-28] MEDS: HEPARIN SOD FLUSH 500 UNITS/5 ML SYRINGE IV PUSH ×2 (08:20→19:25)
--- NOTE | 2020-01-28 08:50 | PC.NURSE ---
3810 Patient here for day 11 bid Fortaz IV antibiotic. Fortaz administered (SEE MAR) Patient wanted port needle out for the day. Patient reports the lung doctor up his diuretic. Otherwise patient doing ok. Tolerated infusion well. Safe exit of hospital. Back for evening dose around 7 pm.
--- NOTE | 2020-01-28 19:04 | PC.NURSE ---
Port a cath reaccessed for IV therapy. Blood return obtained, port flushed without difficity with new dressing applied, IV ABT started per MD order. Patient tolerated well.
--- NOTE | 2020-01-28 19:29 | PC.NURSE ---
Patient IV therapy completed for the eveining.. Patient tolerated well.
[2020-01-29 07:33] VITALS: BP 140/86; PULSE 100; RESP 20; TEMP 36.6
--- NOTE | 2020-01-29 07:59 | PC.NURSE ---
Here for a.m. dose of bid Fortaz IV infusion. No concerns voiced. Breathing not as hard this am noted and reported. Fortaz administered see MAR. Tolerated well. Safe exit of hospital. Will return this evening.
[2020-01-29] MEDS: HEPARIN SOD FLUSH 500 UNITS/5 ML SYRINGE IV PUSH ×2 (08:01→19:36)
--- NOTE | 2020-01-29 19:08 | PC.NURSE ---
Patient arrived. Port a cath flushed with Normal Saline and IV Fortaz started at 100 ml/hour. Port flushed without difficulty, patient tolerated well.
--- NOTE | 2020-01-29 19:37 | PC.NURSE ---
Patient completed eveinign dose of antibiotic. Port flushed with normal salinie and heap
--- NOTE | 2020-01-29 19:39 | PC.NURSE ---
Patient's evening dose of antibiotic completed. Port flushed with normal saline and heparin. Patient tolerated well
[2020-01-30] MEDS: HEPARIN SOD FLUSH 500 UNITS/5 ML SYRINGE IV PUSH ×2 (07:53→19:39)
--- NOTE | 2020-01-30 19:12 | PC.NURSE ---
Patient arrived for IV Fortaz therapy. Port flushed without difficuty.. Patient tolerated well.
--- NOTE | 2020-01-30 19:39 | PC.NURSE ---
Patient's IV Fortaz completed for this shift. Port flushed with normal saline and heparin flush. Patient tolerated well.
[2020-01-31] MEDS: HEPARIN SOD FLUSH 500 UNITS/5 ML SYRINGE IV PUSH (07:30)
--- NOTE | 2020-02-22 16:06 | PC.NURSE ---
Late entry for 01/19/2020 1850: Patient arrived for IV antibiotic therapy. Port a cath clean, dry, intact. Flushed with normal saline without difficulty. Ceftazidime 1 GM administered per MD order. Infusion completed without problems. Port a cath flushed with normal saline and heparin flush. Patient tolerated well. Patient out @ 1930.
== END 2020-04-17 23:59 | disposition home or self-care (01) ==
LOC: CHSTREATRM 07:21
PROVIDERS: PCP Internal Medicine; Visit Provider Internal Medicine Pulmonary Disease
DX: J20.8 Acute bronchitis due to other specified organisms (principal); Z94.2 Lung transplant status
CPT/HCPCS: 96365; 96366; J0713

== ENCOUNTER 2020-02-07 07:35 | Outpatient (CLI) | payer MEDICARE, SELFPAY ==
[2020-02-07] MEDS: HEPARIN SOD FLUSH 500 UNITS/5 ML SYRINGE IV PUSH (09:03)
[2020-02-07 09:11] VITALS: BP 136/85; PULSE 88; RESP 16; TEMP 36.6; O2SAT 96
--- NOTE | 2020-02-07 09:49 | PC.NURSE ---
0900 Patient here for weekly IV Prolastin infusion. No concerns voiced. Prolastin infusion administered. Tolerated well. Safe exit of hospital.
[2020-02-07 10:13] LABS: Anion Gap 3 mmol/L (8-16); Blood Urea Nitrogen 69 mg/dL (7-18); Calcium 8.1 mg/dL (8.5-10.1); Carbon Dioxide 36 mmol/L (21-32); Chloride 101 mmol/L (98-108); Estimated Glomerular Filt Rate 28; Glucose 218 mg/dL (70-99); Osmolality Calculated 317 mOsm/kg (285-295); Potassium 3.7 mmol/L (3.5-5.1); Sodium 140 mmol/L (136-145)
== END 2020-02-07 07:36 | disposition home or self-care (01) ==
PROVIDERS: PCP Internal Medicine; Visit Provider Internal Medicine Pulmonary Disease
DX: E88.01 Alpha-1-antitrypsin deficiency (principal)
CPT/HCPCS: 36415; 80048; 96365; J0256

== ENCOUNTER 2020-02-14 07:31 | Outpatient (CLI) | payer MEDICARE, SELFPAY ==
[2020-02-14] MEDS: HEPARIN SOD FLUSH 500 UNITS/5 ML SYRINGE IV PUSH (09:28)
== END 2020-02-14 07:32 | disposition home or self-care (01) ==
PROVIDERS: PCP Internal Medicine; Visit Provider Internal Medicine Pulmonary Disease
DX: E88.01 Alpha-1-antitrypsin deficiency (principal)
CPT/HCPCS: 96365; J0256

== ENCOUNTER 2020-02-17 08:29 | Outpatient (CLI) | payer MEDICARE, SELFPAY ==
[2020-02-17] VITALS (7 sets, daily range): BP systolic 101–120; BP diastolic 66–80; PULSE 83–97; RESP 20; TEMP 36.2; O2SAT 100
--- NOTE | 2020-02-17 13:30 | PC.NURSE ---
Patient tolerated infusion well. Denies any concerns. Port site de-accessed, bandage applied to site. Patient denies any questions or concerns. Next appt. made for 03-15-20 at 0900. Patient left ambulatory with . Denies any questions at discharge.
== END 2020-02-17 08:30 | disposition home or self-care (01) ==
LOC: CHSTREATRM 08:31
PROVIDERS: PCP Internal Medicine; Visit Provider Internal Medicine Pulmonary Disease
DX: D80.1 Nonfamilial hypogammaglobulinemia (principal)
CPT/HCPCS: 96365; 96366; J1459

== ENCOUNTER 2020-02-21 07:55 | Outpatient (CLI) | payer MEDICARE, SELFPAY ==
[2020-02-21 09:58] LABS: Hematocrit 37.5 % (37.0-46.0); Hemoglobin 11.5 g/dL (12.4-15.3); Mean Corpuscular HGB Conc 30.7 g/dL (32.0-36.0); Mean Corpuscular Hemoglobin 30.8 pg (27.0-31.0); Mean Corpuscular Volume 100.5 fL (78.0-102.0); Mean Platelet Volume 9.5 fl (8.7-11.0); Platelet Count Result 168 K/mm3 (150-420); Red Blood Count 3.73 M/mm3 (4.70-6.10); Red Cell Distribution Width 16.6 % (11.6-14.4); White Blood Count 6.3 K/mm3 (4.8-10.8)
[2020-02-21 10:10] LABS: INR 1.5; Prothrombin Time 15.2 Seconds (9.64-11.0)
[2020-02-21 10:17] LABS: Band Neutrophils Percent 0 % (0-6); Basophils Percent Manual 0 % (0-1); Eosinophils Percent Manual 0 % (1-6); Lymphocytes Absolute Manual 0.81 K/mm3 (1.1-4.5); Lymphocytes Percent Manual 13 % (18-44); Monocytes Absolute Manual 0.37 K/mm3 (0.1-0.90); Monocytes Percent Manual 6 % (3-9); Myelocytes Percent 1 %; Neutrophils Absolute Manual 5.04 K/mm3 (1.3-6.7); Neutrophils Percent Manual 80 % (46-73); Platelet Estimate Adequate (Adequate); Total Cells Counted 100
[2020-02-21 10:19] LABS: Alanine Aminotransferase 13 U/L (16-63); Albumin Level 3.2 g/dL (3.4-5.0); Alkaline Phosphatase 70 U/L (46-116); Anion Gap 5 mmol/L (8-16); Aspartate Amino Transferase 32 U/L (15-37); Bilirubin,Total 0.5 mg/dL (0.00-1.00); Blood Urea Nitrogen 58 mg/dL (7-18); Calcium 8.4 mg/dL (8.5-10.1); Carbon Dioxide 33 mmol/L (21-32); Chloride 104 mmol/L (98-108); Estimated Glomerular Filt Rate 36; Glucose 96 mg/dL (70-99); Osmolality Calculated 310 mOsm/kg (285-295); Potassium 4.7 mmol/L (3.5-5.1); Sodium 142 mmol/L (136-145); Total Protein 6.7 g/dL (6.4-8.2)
[2020-02-21] MEDS: HEPARIN SOD FLUSH 500 UNITS/5 ML SYRINGE IV PUSH (10:29)
--- NOTE | 2020-02-21 10:31 | PC.NURSE ---
Patient here for weekly Prolastin infusion. Reports feels better after having a rough last week. Labs drawn from port and sent to lab. Prolastin infusion administered. Tolerated well. Safe exit of hospital.
== END 2020-02-21 07:56 | disposition home or self-care (01) ==
PROVIDERS: PCP Internal Medicine; Visit Provider Internal Medicine Pulmonary Disease
DX: E88.01 Alpha-1-antitrypsin deficiency (principal); Z48.24 Encounter for aftercare following lung transplant
CPT/HCPCS: 36415; 80053; 80197; 85025; 85610; 96365; J0256

== ENCOUNTER 2020-02-28 07:49 | Outpatient (CLI) | payer MEDICARE, SELFPAY ==
[2020-02-28 10:17] LABS: INR 1.6; Prothrombin Time 16.7 Seconds (9.64-11.0)
[2020-02-28] MEDS: HEPARIN SOD FLUSH 500 UNITS/5 ML SYRINGE IV PUSH (10:57)
== END 2020-02-28 07:50 | disposition home or self-care (01) ==
LOC: CHSTREATRM 07:52
PROVIDERS: PCP Internal Medicine; Visit Provider Internal Medicine Pulmonary Disease
DX: E88.01 Alpha-1-antitrypsin deficiency (principal); Z94.2 Lung transplant status; I82.509 Chronic embolism and thrombosis of unspecified deep veins of unspecified lower extremity
CPT/HCPCS: 36415; 85610; 96365; J0256

== ENCOUNTER 2020-03-05 08:08 | Outpatient (CLI) | payer MEDICARE, SELFPAY ==
[2020-03-05 09:10] VITALS: BP 128/70; PULSE 100; RESP 14; TEMP 36.6; O2SAT 98
[2020-03-05] MEDS: HEPARIN SOD FLUSH 500 UNITS/5 ML SYRINGE IV PUSH (09:38)
--- NOTE | 2020-03-05 09:39 | PC.NURSE ---
Patient here for weekly IV Prolastin infusion. No concerns voiced. Prolastin infusion administered. Patient tolerated it well. Safe exit of hospital. Will return Friday March 13, 2020 0800 for next infusion.
== END 2020-03-05 08:09 | disposition home or self-care (01) ==
LOC: CHSTREATRM 08:10
PROVIDERS: PCP Internal Medicine; Visit Provider Internal Medicine Pulmonary Disease
DX: E88.01 Alpha-1-antitrypsin deficiency (principal)
CPT/HCPCS: 96365; J0256

== ENCOUNTER 2020-03-13 07:51 | Outpatient (CLI) | payer MEDICARE, SELFPAY ==
[2020-03-13] MEDS: HEPARIN SOD FLUSH 500 UNITS/5 ML SYRINGE IV PUSH (09:38)
== END 2020-03-13 07:52 | disposition home or self-care (01) ==
PROVIDERS: PCP Internal Medicine; Visit Provider Internal Medicine Pulmonary Disease
DX: E88.01 Alpha-1-antitrypsin deficiency (principal)
CPT/HCPCS: 96365; J0256

== ENCOUNTER 2020-03-14 13:25 | Outpatient (CLI) | payer MEDICARE, SELFPAY ==
[2020-03-14 13:40] VITALS: PULSE 76; O2SAT 91
[2020-03-14 13:41] VITALS: PULSE 114; O2SAT 88
[2020-03-14 13:42] VITALS: PULSE 84; O2SAT 85
[2020-03-14 13:43] VITALS: PULSE 72; O2SAT 88
[2020-03-14 13:44] VITALS: PULSE 102; O2SAT 97
--- NOTE | 2020-03-14 15:42 | RCSIXMIN ---
Six Minute Walk RC: Six Minute Walk Start: 03/14/20 14:28 Freq: Status: Active Protocol: Activity Type Activity Date Activity User E-Sign Co-Sign Detail Recorded Client Recorded Date Recorded By Document 03/14/20 13:40 SETH [id number] 03/14/20 14:39 SETH Document 03/14/20 13:41 SETH [id number] 03/14/20 14:39 SETH Document 03/14/20 13:42 SETH [id number] 03/14/20 14:39 SETH Document 03/14/20 13:43 SETH [id number] 03/14/20 14:39 SETH Document 03/14/20 13:44 SETH [id number] 03/14/20 14:39 SETH 03/14/20 03/14/20 03/14/20 13:40 13:41 13:42 Six Minute Walk Test Phase Resting Exercise Exercise Oxygen Delivery Room Air Room Air Nasal Cannula Oxygen Flow Rate (L/min) 2 Pulse Oximetry (90-100 %) 91 88 L 85 L Pulse Rate (60-100 beats/min) 76 114 H 84 Activity Tolerance Fair Fair Rating of Perceived Dyspnea (PD) +2 Mild, Some +3 Moderate +3 Moderate Difficulty, Difficulty, But Difficulty, But Noticeable to Can Continue Can Continue the Observer Rate of Perceived Exertion (PE) 12 13 Somewhat 14 Hard Ambulation Distance (feet) 15 50 Six Minute Walk Comments Walked pushing Walked 50 feet w/c 15 feet on n/c @ 2lpm with with desaturation to desaturation. 88%. Will Will increase start O2 @ 2ipm 02 to 3 lpm n/c n/c Charge Six Minute Walk 03/14/20 03/14/20 13:43 13:44 Six Minute Walk Test Phase Exercise Exercise Oxygen Delivery Nasal Cannula Nasal Cannula Oxygen Flow Rate (L/min) 3 4 Pulse Oximetry (90-100 %) 88 L 97 Pulse Rate (60-100 beats/min) 72 102 H Activity Tolerance Fair Good Rating of Perceived Dyspnea (PD) +3 Moderate +2 Mild, Some Difficulty, But Difficulty, Can Continue Noticeable to the Observer Rate of Perceived Exertion (PE) 14 12 Ambulation Distance (feet) 60 240 Six Minute Walk Comments Walked 60 feet Walked pushing pushing w/c w/c 240 feet with with 02 @ 4lpm desaturation to continous flow. 88%. Will Sp02 97% HR increase 02 to 102. Total 4 lpm n/c distance walked in 6 minutes was 365 feet with one rest lasting one minute. Great effort. Charge
== END 2020-03-14 13:26 | disposition home or self-care (01) ==
LOC: CHSCARD 13:27
PROVIDERS: PCP Internal Medicine; Visit Provider Internal Medicine Pulmonary Disease
DX: T86.810 Lung transplant rejection (principal)
CPT/HCPCS: 94618

== ENCOUNTER 2020-03-16 08:45 | Outpatient (CLI) | payer MEDICARE, SELFPAY ==
[2020-03-16 09:15] VITALS: BP 136/77; PULSE 92; RESP 16; TEMP 36.5; O2SAT 98
[2020-03-16 09:45] VITALS: BP 116/69; PULSE 86; RESP 14; O2SAT 100
[2020-03-16 10:15] VITALS: BP 117/69; PULSE 80; RESP 16; O2SAT 99
[2020-03-16 10:45] VITALS: BP 126/70; PULSE 78; RESP 16; O2SAT 99
[2020-03-16 12:07] VITALS: BP 126/70; PULSE 80; RESP 16; O2SAT 99
--- NOTE | 2020-03-16 12:38 | PC.NURSE ---
Patient here for monthly IVIG (Privigen) infusion. NO concerns voiced. Privigen administered. Tolerated it well. Safe exit of hospital. Will return for Privigen Apr 13, 2020 0900 Thursday.
== END 2020-03-16 08:46 | disposition home or self-care (01) ==
LOC: CHSTREATRM 08:47
PROVIDERS: PCP Internal Medicine; Visit Provider Internal Medicine Pulmonary Disease
DX: D80.1 Nonfamilial hypogammaglobulinemia (principal)
CPT/HCPCS: 96365; 96366; J1459

== ENCOUNTER 2020-03-20 07:56 | Outpatient (CLI) | payer MEDICARE, SELFPAY ==
[2020-03-20] MEDS: HEPARIN SOD FLUSH 500 UNITS/5 ML SYRINGE IV PUSH (09:57)
== END 2020-03-20 07:57 | disposition home or self-care (01) ==
PROVIDERS: PCP Internal Medicine; Visit Provider Internal Medicine Pulmonary Disease
DX: E88.01 Alpha-1-antitrypsin deficiency (principal)
CPT/HCPCS: 96365; J0256

== ENCOUNTER 2020-03-27 07:44 | Outpatient (CLI) | payer MEDICARE, SELFPAY ==
[2020-03-27] MEDS: HEPARIN SOD FLUSH 500 UNITS/5 ML SYRINGE IV PUSH (09:30)
--- NOTE | 2020-03-27 09:59 | PC.NURSE ---
Infusion complete, port flushed and kwon needle removed intact, bandage applied, tolerated well, ambulatory on discharge
== END 2020-03-27 07:45 | disposition home or self-care (01) ==
LOC: CHSTREATRM 07:47
PROVIDERS: PCP Internal Medicine; Visit Provider Internal Medicine Pulmonary Disease
DX: E88.01 Alpha-1-antitrypsin deficiency (principal)
CPT/HCPCS: 96365; J0256

== ENCOUNTER 2020-04-03 07:53 | Outpatient (CLI) | payer MEDICARE, SELFPAY ==
[2020-04-03 09:30] VITALS: BP 134/70; PULSE 80; RESP 20; TEMP 36.6; O2SAT 95
[2020-04-03] MEDS: HEPARIN SOD FLUSH 500 UNITS/5 ML SYRINGE IV PUSH (10:05)
--- NOTE | 2020-04-03 10:07 | PC.NURSE ---
Patient here for weekly IV Prolastin infusion. No concerns voiced. Prolastin infusion administered. Tolerated well. Safe exit of hospital. Will return next Thursday.
== END 2020-04-03 07:54 | disposition home or self-care (01) ==
PROVIDERS: PCP Internal Medicine; Visit Provider Internal Medicine Pulmonary Disease
DX: E88.01 Alpha-1-antitrypsin deficiency (principal)
CPT/HCPCS: 96365; J0256

== ENCOUNTER 2020-04-10 07:51 | Outpatient (CLI) | payer MEDICARE, SELFPAY ==
[2020-04-10] MEDS: HEPARIN SOD FLUSH 500 UNITS/5 ML SYRINGE IV PUSH (09:57)
== END 2020-04-10 07:52 | disposition home or self-care (01) ==
PROVIDERS: PCP Internal Medicine; Visit Provider Internal Medicine Pulmonary Disease
DX: E88.01 Alpha-1-antitrypsin deficiency (principal)
CPT/HCPCS: 96365; J0256

== ENCOUNTER 2020-04-13 08:28 | Outpatient (CLI) | payer MEDICARE, SELFPAY ==
[2020-04-13 09:00] VITALS: BP 121/70; PULSE 88; RESP 18; TEMP 36.9; O2SAT 97
[2020-04-13 09:30] VITALS: BP 122/70; PULSE 78; O2SAT 97
[2020-04-13 10:00] VITALS: BP 125/70; PULSE 92; RESP 16; O2SAT 96
[2020-04-13] MEDS: HEPARIN SOD FLUSH 500 UNITS/5 ML SYRINGE IV PUSH (13:40)
[2020-04-13 13:57] VITALS: BP 125/69; PULSE 78; RESP 14; O2SAT 97
--- NOTE | 2020-04-13 13:59 | PC.NURSE ---
Patient here for monthly IVIG IV infusion. IVIG infusion administered. Tolerated well. Safe exit of hospital. Will return for next month dose.
== END 2020-04-13 08:29 | disposition home or self-care (01) ==
PROVIDERS: PCP Internal Medicine; Visit Provider Internal Medicine Pulmonary Disease
DX: D80.1 Nonfamilial hypogammaglobulinemia (principal)
CPT/HCPCS: 96365; 96366; J1459

== ENCOUNTER 2020-04-17 07:47 | Outpatient (CLI) | payer MEDICARE, SELFPAY ==
[2020-04-17 09:52] LABS: Hematocrit 34.6 % (37.0-46.0); Hemoglobin 9.9 g/dL (12.4-15.3); Mean Corpuscular HGB Conc 28.6 g/dL (32.0-36.0); Mean Corpuscular Hemoglobin 31.1 pg (27.0-31.0); Mean Corpuscular Volume 108.8 fL (78.0-102.0); Mean Platelet Volume 10.3 fl (8.7-11.0); Platelet Count Result 155 K/mm3 (150-420); Red Blood Count 3.18 M/mm3 (4.70-6.10); Red Cell Distribution Width 15.9 % (11.6-14.4); White Blood Count 6.6 K/mm3 (4.8-10.8)
[2020-04-17 10:10] LABS: Alanine Aminotransferase 10 U/L (16-63); Albumin Level 3.5 g/dL (3.4-5.0); Alkaline Phosphatase 73 U/L (46-116); Anion Gap 4 mmol/L (8-16); Aspartate Amino Transferase 34 U/L (15-37); Bilirubin,Total 0.5 mg/dL (0.00-1.00); Blood Urea Nitrogen 40 mg/dL (7-18); Calcium 8.6 mg/dL (8.5-10.1); Carbon Dioxide 35 mmol/L (21-32); Chloride 108 mmol/L (98-108); Estimated Glomerular Filt Rate 35; Glucose 146 mg/dL (70-99); Osmolality Calculated 316 mOsm/kg (285-295); Potassium 4.7 mmol/L (3.5-5.1); Sodium 147 mmol/L (136-145); Total Protein 6.6 g/dL (6.4-8.2)
[2020-04-17] MEDS: HEPARIN SOD FLUSH 500 UNITS/5 ML SYRINGE IV PUSH (10:10)
[2020-04-17 10:26] LABS: Band Neutrophils Percent 0 % (0-6); Lymphocytes Absolute Manual 0.66 K/mm3 (1.1-4.5); Lymphocytes Percent Manual 10 % (18-44); Monocytes Absolute Manual 0.59 K/mm3 (0.1-0.90); Monocytes Percent Manual 9 % (3-9); Neutrophils Absolute Manual 5.08 K/mm3 (1.3-6.7); Neutrophils Percent Manual 77 % (46-73); Total Cells Counted 100
[2020-04-17 10:27] LABS: Basophils Percent Manual 0 % (0-1); Eosinophils Absolute Manual 0.13 K/mm3 (0.02-0.5); Eosinophils Percent Manual 2 % (1-6); Metamyelocytes Percent 1 %; Myelocytes Percent 1 %; Platelet Estimate Adequate (Adequate)
--- NOTE | 2020-04-17 10:40 | PC.NURSE ---
Patient tolerated weekly Prolastin IV infusion well. No concerns voiced. Safe exit of hospital.
[2020-04-17 10:42] VITALS: BP 122/70; PULSE 88; RESP 18; O2SAT 97
== END 2020-04-17 07:48 | disposition home or self-care (01) ==
PROVIDERS: PCP Internal Medicine; Visit Provider Internal Medicine Pulmonary Disease
DX: Z48.24 Encounter for aftercare following lung transplant (principal); E88.01 Alpha-1-antitrypsin deficiency
CPT/HCPCS: 36415; 80053; 85025; 96365; J0256

== ENCOUNTER 2020-04-24 07:54 | Outpatient (CLI) | payer MEDICARE, SELFPAY ==
--- NOTE | 2020-04-24 08:10 | PC.NURSE ---
Here for OP IV therapy, to go to rehab first
[2020-04-24] MEDS: HEPARIN SOD FLUSH 500 UNITS/5 ML SYRINGE IV PUSH (09:49)
--- NOTE | 2020-04-24 10:40 | PC.NURSE ---
infusion complete, kwon port left accessed and flushed per protocol, states to get IV abx to start this evening, awaiting approval
== END 2020-04-24 07:55 | disposition home or self-care (01) ==
PROVIDERS: PCP Internal Medicine; Visit Provider Internal Medicine Pulmonary Disease
DX: E88.01 Alpha-1-antitrypsin deficiency (principal)
CPT/HCPCS: 96365; J0256; J0692

== ENCOUNTER 2020-05-01 07:00 | Outpatient (CLI) | payer MEDICARE, SELFPAY ==
--- NOTE | 2020-05-01 09:27 | PC.NURSE ---
Tolerated weekly Prolastin IV infusion via patent port a cath well. Safe exit of hospital. Be back next Thursday.
== END 2020-05-01 07:01 | disposition home or self-care (01) ==
LOC: CHSTREATRM 07:02
PROVIDERS: PCP Internal Medicine; Visit Provider Internal Medicine Pulmonary Disease
DX: E88.01 Alpha-1-antitrypsin deficiency (principal)
CPT/HCPCS: 96365; 96366; J0256; J0692

== ENCOUNTER 2020-05-04 07:39 | Outpatient (CLI) | payer MEDICARE, SELFPAY ==
[2020-05-04 08:51] LABS: Anion Gap 2 mmol/L (8-16); Blood Urea Nitrogen 58 mg/dL (7-18); Calcium 8.1 mg/dL (8.5-10.1); Carbon Dioxide 34 mmol/L (21-32); Chloride 105 mmol/L (98-108); Estimated Glomerular Filt Rate 35; Glucose 203 mg/dL (70-99); Osmolality Calculated 314 mOsm/kg (285-295); Potassium 4.2 mmol/L (3.5-5.1); Sodium 141 mmol/L (136-145)
== END 2020-05-04 07:40 | disposition home or self-care (01) ==
LOC: CHSLAB 07:40
PROVIDERS: PCP Internal Medicine; Visit Provider Internal Medicine Pulmonary Disease
DX: Z48.24 Encounter for aftercare following lung transplant (principal)
CPT/HCPCS: 36415; 80048; 96365; 96367; J0692; J0696

== ENCOUNTER 2020-05-08 07:26 | Outpatient (CLI) | payer MEDICARE, SELFPAY ==
[2020-05-08 10:16] VITALS: BP 130/88; PULSE 92; RESP 16; O2SAT 98
--- NOTE | 2020-05-08 10:19 | PC.NURSE ---
Patient tolerated weekly IV Prolastin via patent port. No concerns voiced. Safe exit of hospital. Will return in .
== END 2020-05-08 07:27 | disposition home or self-care (01) ==
LOC: CHSTREATRM 07:28
PROVIDERS: PCP Internal Medicine; Visit Provider Internal Medicine Pulmonary Disease
DX: E88.01 Alpha-1-antitrypsin deficiency (principal)
CPT/HCPCS: 96365; J0256; J0692

== ENCOUNTER 2020-05-08 07:37 | Outpatient (RCR) | payer MEDICARE, SELFPAY ==
[2020-04-25 08:04] VITALS: BP 132/80; PULSE 92; RESP 18; TEMP 36.6; O2SAT 97
--- NOTE | 2020-04-25 08:37 | PC.NURSE ---
Patient here for a.m. dose of day 2 Cefepine IV infusion via patent accessed port. No concerns voiced. Tolerated infusion well. Safe exit of hospital. Will return tonight.
[2020-04-25 19:37] VITALS: BP 118/61; PULSE 98; RESP 18; TEMP 36.4; O2SAT 100
--- NOTE | 2020-04-25 20:36 | PC.NURSE ---
IV infusion completed. Port a cath flushed with NS and Heparin Flush. Protective cap applied to luer lock. Patient taken down to car via wheelchair. Patient tolerated well.
--- NOTE | 2020-04-26 07:10 | PC.NURSE ---
Pt to room 228 amb per self. Up in chair, A&Ox3. Has no complaints or concerns. Oriented to room. Call conner in reach, reminded to call with needs.
[2020-04-26 07:35] VITALS: BP 104/59; PULSE 94; RESP 20; TEMP 36.3; O2SAT 94
[2020-04-26] MEDS: HEPARIN SOD FLUSH 500 UNITS/5 ML SYRINGE IV PUSH ×2 (08:01→19:29)
--- NOTE | 2020-04-26 08:11 | PC.NURSE ---
Medication infused as ordered. Pt tolerated well. Has no questions or complaints. Discharged to home amb per self.
--- NOTE | 2020-04-26 19:39 | PC.NURSE ---
Patient arrived for IV antibiotic therapy. Port a cath flushed with normal saline. IV attached to port and IV antibiotic started infusing.
[2020-04-26 20:07] VITALS: BP 130/86; PULSE 90; RESP 16; TEMP 36.9; O2SAT 99
--- NOTE | 2020-04-26 20:10 | PC.NURSE ---
IV antibiotic dose completed. Port a cath flushed with NS and Heparin. Cap placed over end of port line. Patient tolerated well.
--- NOTE | 2020-04-27 08:09 | PC.NURSE ---
Patient for a.m dose of cefepine IV infusion of BID. Port access in lateral port- unable to flush today. Patient sates, It was bleeding underneath dressing last night and he reinforced with 4x4's. Dry blood cleaned off around. Port needle deaccessed. Under sterile technique. - accessd medial port a cath with great blood return. Patient is going to [facility] for phoresis treatment and they will being using both and if trouble with the lateral one they put some medication in it to open it up. Both sites asystomatic of s/sx of infection. IV antibiotic administered without difficulty. Port needle flushed and deaccessed. Safe exit of hospital. Will be back tonight for p.m. dose.
[2020-04-27] MEDS: HEPARIN SOD FLUSH 500 UNITS/5 ML SYRINGE IV PUSH ×2 (08:36→19:21)
--- NOTE | 2020-04-27 19:45 | PCDIET ---
Patient arrived on floor. Nurse reaccessed port a cath without difficulty. Blood return obtained. Port flushed with normal saline. IV antibiotic started.
--- NOTE | 2020-04-27 20:43 | PC.NURSE ---
IV antibiotic dose completed. Port difficult to flush. Port deaccessed. Pressure dressing applied.
[2020-04-28] MEDS: HEPARIN SOD FLUSH 500 UNITS/5 ML SYRINGE IV PUSH ×2 (08:38→20:15)
--- NOTE | 2020-04-28 08:38 | PC.NURSE ---
accessed inner port this am. tolerated well. immediate return of blood.
[2020-04-28 19:25] VITALS: BP 124/62; PULSE 100; RESP 18; TEMP 36.2
[2020-04-29] MEDS: HEPARIN SOD FLUSH 500 UNITS/5 ML SYRINGE IV PUSH ×2 (08:09→19:56)
--- NOTE | 2020-04-30 07:55 | PC.NURSE ---
Patient here for IV ATB infusion. Port site is clean, dressing dry and intact. Port flushed well, received good blood return. Patient sitting up in chair resting with call light and belongings at side.
[2020-04-30] MEDS: HEPARIN SOD FLUSH 500 UNITS/5 ML SYRINGE IV PUSH ×2 (07:56→20:08)
--- NOTE | 2020-04-30 08:30 | PC.NURSE ---
IV ATB done infusing. Pt. tolerated well. Port site flushed well. Port remains accessed, patient to come back tonight to receive another dose of IV ATB. Patient denies any questions at discharge. Left ambulatory.
--- NOTE | 2020-04-30 20:06 | PC.NURSE ---
Patient arrived on floor. IV port a cath flushed with NS. IV antibiotic started.
--- NOTE | 2020-04-30 20:24 | PC.NURSE ---
Patient's IV antibiotic dose complete. Port flushed with NS and Heparin without difficulty. Sterile cap applied to end of line.
[2020-05-01] MEDS: HEPARIN SOD FLUSH 500 UNITS/5 ML SYRINGE IV PUSH ×2 (07:56→19:40)
[2020-05-01 07:58] VITALS: BP 128/65; PULSE 88; RESP 14; TEMP 36.9; O2SAT 97
--- NOTE | 2020-05-01 07:59 | PC.NURSE ---
Tolerated daily IV antibiotic well via patent port. No concerns voiced.
--- NOTE | 2020-05-02 08:37 | PC.NURSE ---
Tolerated am dose of bid daily IV antibiotic via patent port a cath. NO concerns voiced. Will return tonight.
[2020-05-02] MEDS: HEPARIN SOD FLUSH 500 UNITS/5 ML SYRINGE IV PUSH ×2 (08:45→19:44)
--- NOTE | 2020-05-02 20:04 | PC.NURSE ---
Patient arrived on floor. Port a cath flushed and IV Antibiotic started. Port site clean, dry intact with no redness, swelling, drainage.
--- NOTE | 2020-05-02 20:30 | PC.NURSE ---
IV infusion dose completed. Port flushed with NS and Heparin Flush. Port flushed with no difficulties. Patient tolerated well.
[2020-05-03] MEDS: HEPARIN SOD FLUSH 500 UNITS/5 ML SYRINGE IV PUSH ×2 (08:37→19:52)
--- NOTE | 2020-05-03 08:38 | PC.NURSE ---
Patient tolerated a.m. dose of bid daily IV antibiotic via patent port. No concerns voiced. Safe exit of hospital. Will return tonight.
--- NOTE | 2020-05-03 19:52 | PC.NURSE ---
Patient here for IV ABT. Port to right chest flushed with NS without difficulty. No redness, swelling, drainage from insertion site. IV antibiotic infusion started.
--- NOTE | 2020-05-03 20:13 | PC.NURSE ---
IV antibiotic infusion dose completed. Patient tolerated well. Port flushed with NS and Heparin flush. Sterile cap placed on end of iv tubing.
[2020-05-04] MEDS: HEPARIN SOD FLUSH 500 UNITS/5 ML SYRINGE IV PUSH (08:04)
[2020-05-05] MEDS: HEPARIN SOD FLUSH 500 UNITS/5 ML SYRINGE IV PUSH ×2 (08:00→19:38)
--- NOTE | 2020-05-05 08:40 | PC.NURSE ---
Patient here to receive IV ATB. Port site flushed well, good blood return good. Patient tolerated IV ATB well. States he would like port site left in until thursday. Port site clean dry and intact. Cap applied to hub. Patient left ambulatory. Denies any need at discharge.
[2020-05-05] MEDS: CEFEPIME 2 GM in DEXTROSE 5% IN WATER 50 ML IVPB (19:38)
--- NOTE | 2020-05-05 19:50 | PC.NURSE ---
Pt up to floor. Port a cath to right chest flushed with NS. IV Cefepine started.
[2020-05-06] MEDS: HEPARIN SOD FLUSH 500 UNITS/5 ML SYRINGE IV PUSH ×2 (07:52→19:39)
--- NOTE | 2020-05-06 08:30 | PC.NURSE ---
Patient here to receive IV ATB. Port site flushed well, good blood return received. Patient tolerated infusion well. Port dressing remain clean dry and intact. Patient denies any questions at discharge. Left ambulatory.
--- NOTE | 2020-05-06 19:56 | PC.NURSE ---
Patient up to room for IV antibiotic therapy. Port a cath flushed without difficulty. Insertion site without redness, swelling, drainage. Call light within reach.
--- NOTE | 2020-05-06 20:15 | PC.NURSE ---
IV antibiotic dose completed. Port flushed with NS and Heparin. Patient tolerated well.
--- NOTE | 2020-05-07 08:30 | PC.NURSE ---
Patient deaccessed, dressing applied to site.. Not reaccessed per pt. request. Patient is having another procedure done at another hospital later today and will have it reaccessed then. Patient tolerated IV ATB well. Port site flushed well. Patient left ambulatory, denies any questions at discharge.
[2020-05-07] MEDS: HEPARIN SOD FLUSH 500 UNITS/5 ML SYRINGE IV PUSH (19:34)
--- NOTE | 2020-05-07 20:10 | PC.NURSE ---
20G x 0.75 in power lock port a cath placed in inner port on right side of chest. Blood return obtained. Port flushed with NS. Cefepime ABT started via IV pump.
--- NOTE | 2020-05-07 20:19 | PC.NURSE ---
IV ABT infusion completed. Port flushed with NS and Heparin flush. Patient tolerated well.
--- NOTE | 2020-05-08 08:11 | PC.NURSE ---
Patient tolerated last dose of bid IV antibiotic this morning via patent port. NO concerns voiced.
[2020-05-08] MEDS: HEPARIN SOD FLUSH 500 UNITS/5 ML SYRINGE IV PUSH (08:15)
--- NOTE | 2020-05-15 13:10 | PC.NURSE ---
04/25/20 Cefepime 1 gm IV administered from [id number] via patent port.
== END 2020-05-09 15:00 | disposition home or self-care (01) ==
LOC: CHSTREATRM 07:37
PROVIDERS: PCP Internal Medicine; Visit Provider Internal Medicine Pulmonary Disease
DX: Z94.2 Lung transplant status (principal)
CPT/HCPCS: 96365; 96366; 96367; J0692; J0696

== ENCOUNTER 2020-05-10 07:49 | Outpatient (CLI) | payer MEDICARE, SELFPAY ==
[2020-05-10 09:15] VITALS: BP 106/60; PULSE 88; RESP 16; TEMP 36.6; O2SAT 98
[2020-05-10 09:55] VITALS: BP 108/62; PULSE 92; RESP 14; O2SAT 97
[2020-05-10 10:28] VITALS: BP 111/63; PULSE 88; RESP 14; O2SAT 98
[2020-05-10 13:38] VITALS: PULSE 88; RESP 16; TEMP 36.3; O2SAT 98
--- NOTE | 2020-05-10 13:47 | PC.NURSE ---
Patient here for IVIG infusion. NO concerns. Patient took oral pre meds at home prior to coming. IVIG infusion administered. Tolerated well. SAfe eixt of hospital. Will return Jun 08 for next IVIG.
== END 2020-05-10 07:50 | disposition home or self-care (01) ==
LOC: CHSTREATRM 07:51
PROVIDERS: PCP Internal Medicine; Visit Provider Internal Medicine Pulmonary Disease
DX: D80.1 Nonfamilial hypogammaglobulinemia (principal)
CPT/HCPCS: 96365; 96366; J1459

== ENCOUNTER 2020-05-15 07:50 | Outpatient (CLI) | payer MEDICARE, SELFPAY ==
[2020-05-15 09:28] VITALS: BP 120/70; PULSE 88; RESP 16; TEMP 36.7; O2SAT 99
--- NOTE | 2020-05-15 09:59 | PC.NURSE ---
Patient tolerated weekly Prolastin IV infusion well. No concerns. Inner port good blood return, but unable to flush - meeting resistance. Patient report it did that in [place] last week. Deaccessed. Going tomorrow to have it looked at. Outer port accessed with great blood return and flushes well. Safe exit of hospital. Will return May 22, 2019.
[2020-05-15] MEDS: HEPARIN SOD FLUSH 500 UNITS/5 ML SYRINGE IV PUSH (10:03)
== END 2020-05-15 07:51 | disposition home or self-care (01) ==
LOC: CHSTREATRM 07:53
PROVIDERS: PCP Internal Medicine; Visit Provider Internal Medicine Pulmonary Disease
DX: E88.01 Alpha-1-antitrypsin deficiency (principal)
CPT/HCPCS: 96365; J0256

== ENCOUNTER 2020-05-22 07:52 | Outpatient (CLI) | payer MEDICARE, SELFPAY ==
[2020-05-22] MEDS: HEPARIN SOD FLUSH 500 UNITS/5 ML SYRINGE IV PUSH (09:36)
== END 2020-05-22 07:53 | disposition home or self-care (01) ==
LOC: CHSTREATRM 07:55
PROVIDERS: PCP Internal Medicine; Visit Provider Internal Medicine Pulmonary Disease
DX: E88.01 Alpha-1-antitrypsin deficiency (principal)
CPT/HCPCS: 96365; J0256

== ENCOUNTER 2020-05-29 07:46 | Outpatient (CLI) | payer MEDICARE, SELFPAY ==
[2020-05-29] MEDS: HEPARIN SOD FLUSH 500 UNITS/5 ML SYRINGE IV PUSH (09:25)
--- NOTE | 2020-05-29 09:54 | PC.NURSE ---
Patient tolerated IV weekly Prolastin infusion well. No concerns voiced. Will return Jun 05, 2020 next week. Safe exit of hospital.
== END 2020-05-29 07:47 | disposition home or self-care (01) ==
LOC: CHSTREATRM 07:48
PROVIDERS: PCP Internal Medicine; Visit Provider Internal Medicine Pulmonary Disease
DX: E88.01 Alpha-1-antitrypsin deficiency (principal)
CPT/HCPCS: 96365; J0256

== ENCOUNTER 2020-06-05 07:44 | Outpatient (CLI) | payer MEDICARE, SELFPAY ==
[2020-06-05] MEDS: HEPARIN SOD FLUSH 500 UNITS/5 ML SYRINGE IV PUSH (10:04)
--- NOTE | 2020-06-05 10:06 | PC.NURSE ---
Tolerated IV Prolastin infusion well via patent topete. Voices no concerns. Safe exit of hospital. Be back next Thursday.
== END 2020-06-05 07:45 | disposition home or self-care (01) ==
PROVIDERS: PCP Internal Medicine; Visit Provider Internal Medicine Pulmonary Disease
DX: E88.01 Alpha-1-antitrypsin deficiency (principal)
CPT/HCPCS: 96365; J0256

== ENCOUNTER 2020-06-08 08:39 | Outpatient (CLI) | payer MEDICARE, SELFPAY ==
[2020-06-08] VITALS (7 sets, daily range): BP systolic 92–102; BP diastolic 50–58; PULSE 87–101
--- NOTE | 2020-06-08 09:00 | PC.NURSE ---
hERE FOR OP INFUSION
[2020-06-08] MEDS: IMMUNE GLOBULIN IVPB (09:05)
--- NOTE | 2020-06-08 09:37 | PC.NURSE ---
Infusion to 50ml an hour, patient states feeling fine, vitals documented
--- NOTE | 2020-06-08 11:40 | PC.NURSE ---
resting in chair, tolerating infusion well
--- NOTE | 2020-06-08 13:46 | PC.NURSE ---
infusion complete, tolerated well, topete cath flushed per protocol
[2020-06-08] MEDS: HEPARIN SOD FLUSH 500 UNITS/5 ML SYRINGE IV PUSH (13:48)
== END 2020-06-08 08:40 | disposition home or self-care (01) ==
PROVIDERS: PCP Internal Medicine; Visit Provider Internal Medicine Pulmonary Disease
DX: D80.1 Nonfamilial hypogammaglobulinemia (principal)
CPT/HCPCS: 96365; 96366; J1459

== ENCOUNTER 2020-06-12 08:30 | Outpatient (CLI) | payer MEDICARE, SELFPAY ==
[2020-06-12] MEDS: HEPARIN SOD FLUSH 500 UNITS/5 ML SYRINGE IV PUSH (09:05)
[2020-06-12 09:18] VITALS: BP 100/63; PULSE 92; RESP 14; TEMP 36.6; O2SAT 97
--- NOTE | 2020-06-12 10:27 | PC.NURSE ---
Patient tolerated weekly Prolastin IV infusion well. No concerns voiced. Will return next Thursday. Safe exit of hospital.
== END 2020-06-12 08:31 | disposition home or self-care (01) ==
LOC: CHSTREATRM 08:32
PROVIDERS: PCP Internal Medicine; Visit Provider Internal Medicine Pulmonary Disease
DX: E88.01 Alpha-1-antitrypsin deficiency (principal)
CPT/HCPCS: 96365; J0256

== ENCOUNTER 2020-06-14 08:33 | Outpatient (CLI) | payer MEDICARE, SELFPAY ==
[2020-06-14] VITALS (10 sets, daily range): BP systolic 97–138; BP diastolic 59–78; PULSE 87–101; RESP 14–20; TEMP 36.4–37; O2SAT 95–99
[2020-06-14] MEDS: SODIUM CHLORIDE 0.9% IV 250 ML 30 ML IVPB (09:50)
[2020-06-14 09:51] LABS: Hematocrit 26.6 % (37.0-46.0)
[2020-06-14] MEDS: FUROSEMIDE INJ 40 MG/4 ML VIAL 20 MG IV PUSH (13:26)
[2020-06-14 13:43] LABS: Hematocrit 27.9 % (37.0-46.0); Hemoglobin 8.5 g/dL (12.4-15.3)
[2020-06-14] MEDS: HEPARIN SOD FLUSH 500 UNITS/5 ML SYRINGE IV PUSH (17:35)
--- NOTE | 2020-06-14 18:00 | PC.NURSE ---
1800 post H&H drawn per line and all 3 lines flushed blood taken to lab.
[2020-06-14 18:15] LABS: Hematocrit 30.8 % (37.0-46.0); Hemoglobin 9.5 g/dL (12.4-15.3)
== END 2020-06-14 08:34 | disposition home or self-care (01) ==
PROVIDERS: PCP Internal Medicine
DX: D64.9 Anemia, unspecified (principal); Z94.2 Lung transplant status
CPT/HCPCS: 36415; 36430; 85014; 85018; 86850; 86900; 86901; 86920; J1940; J7050; P9016

== ENCOUNTER 2020-06-19 07:48 | Outpatient (CLI) | payer MEDICARE, SELFPAY ==
[2020-06-19] MEDS: HEPARIN SOD FLUSH 500 UNITS/5 ML SYRINGE IV PUSH (10:00)
--- NOTE | 2020-06-19 10:04 | PC.NURSE ---
Tolerated weekly Prolastin IV infusion via patent left chest topete. No concerns voiced. Will return next Thursday. Safe exit of hospital.
== END 2020-06-19 07:49 | disposition home or self-care (01) ==
LOC: CHSTREATRM 07:50
PROVIDERS: PCP Internal Medicine; Visit Provider Internal Medicine Pulmonary Disease
DX: E88.01 Alpha-1-antitrypsin deficiency (principal)
CPT/HCPCS: 96365; J0256

== ENCOUNTER 2020-06-26 07:48 | Outpatient (CLI) | payer MEDICARE, SELFPAY ==
[2020-06-26 10:15] VITALS: BP 95/47; PULSE 92; RESP 16; O2SAT 95
[2020-06-26 11:00] LABS: Vitamin B12 1505 pg/mL (193-986)
[2020-06-26] MEDS: SODIUM CHLORIDE 0.9% IV 500 ML 250 ML IVPB (11:00)
[2020-06-26 11:01] LABS: Folic Acid > 20.0 ng/mL (8.6->20)
--- NOTE | 2020-06-26 11:12 | PC.NURSE ---
Patient came from cardiac rehab to outpatient infusion. Patient will be getting weekly IV Prolastin. Patient reports feeling worn out worn down . Obdulia, cardiac rehab nurse reports low b/p's 90's/ 40's-50's. Patient obvious looks fatigued and skin turgor decrease-little dry. Weekly IV Prolastin infusion administered. B/p 95/47. Patient reports not feeling any different. Spoke with Dr. Evans, patient's entry level chemist at [place], who orders his prolastin. He ordered to NS 500 ml to infuse over 2 hours. Patient already has an appointment with him tomorrow. Dr. Gunter will see then. NS 500 ml infusion started. see JUL.
[2020-06-26 12:22] VITALS: BP 122/80; PULSE 88; RESP 14; O2SAT 97
--- NOTE | 2020-06-26 12:23 | PC.NURSE ---
IV fluids continue to infuse without difficulty. B/P 122/80. Up to bathroom and back. Reports less shaky and wobbly. Also reports urinating a good amount. B/P 120/80 after being up to bathroom.
[2020-06-26 13:05] VITALS: BP 102/73; PULSE 92; TEMP 36.6; O2SAT 97
[2020-06-26] MEDS: HEPARIN SOD FLUSH 500 UNITS/5 ML SYRINGE IV PUSH (13:10)
--- NOTE | 2020-06-26 13:37 | PC.NURSE ---
1320 Tolerated NS infusion well. B/P 103/74. Reports feels somewhat better. Safe exit of hospital per wheelchair. Will return next Thursday for weekly Prolastin infusion. Has appt with Dr. Gunter tomorrow in @ [facility].
[2020-06-30 06:38] LABS: Methylmalonic Acid 435 nmol/L (87-318)
== END 2020-06-26 07:49 | disposition home or self-care (01) ==
LOC: CHSLAB 07:57 → CHSTREATRM 09:00
PROVIDERS: PCP Internal Medicine; Visit Provider Internal Medicine Pulmonary Disease
DX: E88.01 Alpha-1-antitrypsin deficiency (principal); D53.9 Nutritional anemia, unspecified
CPT/HCPCS: 36415; 82607; 82746; 83921; 96360; 96361; 96365; J0256; J7040

== ENCOUNTER 2020-06-30 11:18 | Outpatient (CLI) | payer MEDICARE, SELFPAY ==
[2020-06-30 11:31] LABS: Occult Blood Positive (Negative)
[2020-06-30 11:31] LABS: Occult Blood Positive (Negative)
[2020-06-30 11:32] LABS: Occult Blood Positive (Negative)
== END 2020-06-30 11:19 | disposition home or self-care (01) ==
LOC: CHSLAB 11:20
PROVIDERS: PCP Internal Medicine; Visit Provider Internal Medicine Pulmonary Disease
DX: D64.9 Anemia, unspecified (principal)
CPT/HCPCS: 82272

== ENCOUNTER 2020-07-03 07:49 | Outpatient (CLI) | payer MEDICARE, SELFPAY ==
[2020-07-03 09:38] LABS: Hematocrit 25.4 % (37.0-46.0); Hemoglobin 7.9 g/dL (12.4-15.3); Mean Corpuscular HGB Conc 31.1 g/dL (32.0-36.0); Mean Corpuscular Hemoglobin 30.6 pg (27.0-31.0); Mean Corpuscular Volume 98.4 fL (78.0-102.0); Mean Platelet Volume 9.1 fl (8.7-11.0); Platelet Count Result 158 K/mm3 (150-420); Red Blood Count 2.58 M/mm3 (4.70-6.10); Red Cell Distribution Width 17.9 % (11.6-14.4); White Blood Count 4.9 K/mm3 (4.8-10.8)
[2020-07-03 09:52] LABS: INR 2.3; Prothrombin Time 23.4 Seconds (9.50-12.10)
[2020-07-03 10:03] VITALS: BP 121/69; PULSE 92; RESP 12; TEMP 36.6; O2SAT 97
--- NOTE | 2020-07-03 10:05 | PC.NURSE ---
Patient tolerated weekly Prolastin IV infusion. No concerns. Will return next Thursday for IVIG Infusion and Thursday for Prolastin. Safe exit of hospital.
[2020-07-03] MEDS: HEPARIN SOD FLUSH 500 UNITS/5 ML SYRINGE IV PUSH (10:17)
[2020-07-03 10:18] LABS: Band Neutrophils Percent 3 % (0-6); Basophils Absolute Manual 0.04 K/mm3 (0-0.1); Basophils Percent Manual 1 % (0-1); Eosinophils Absolute Manual 0.04 K/mm3 (0.02-0.5); Eosinophils Percent Manual 1 % (1-6); Lymphocytes Absolute Manual 0.53 K/mm3 (1.1-4.5); Lymphocytes Percent Manual 11 % (18-44); Monocytes Absolute Manual 0.34 K/mm3 (0.1-0.90); Monocytes Percent Manual 7 % (3-9); Myelocytes Percent 2 %; Neutrophils Absolute Manual 3.82 K/mm3 (1.3-6.7); Neutrophils Percent Manual 75 % (46-73); Platelet Estimate Adequate (Adequate); Total Cells Counted 100
== END 2020-07-03 07:50 | disposition home or self-care (01) ==
LOC: CHSLAB 07:50 → CHSTREATRM 07:55
PROVIDERS: PCP Internal Medicine; Visit Provider Internal Medicine Pulmonary Disease
DX: E88.01 Alpha-1-antitrypsin deficiency (principal); Z48.24 Encounter for aftercare following lung transplant
CPT/HCPCS: 36415; 85025; 85610; 96365; J0256

== ENCOUNTER 2020-07-05 08:25 | Outpatient (CLI) | payer MEDICARE, SELFPAY ==
[2020-07-05] VITALS (8 sets, daily range): BP systolic 102–123; BP diastolic 60–70; PULSE 92–106; RESP 14–16; TEMP 36.6–36.9; O2SAT 98–100
[2020-07-05 08:45] LABS: Hematocrit 26.3 % (37.0-46.0)
[2020-07-05] MEDS: SODIUM CHLORIDE 0.9% IV 250 ML 10 ML IVPB (09:06)
[2020-07-05] MEDS: FUROSEMIDE INJ 40 MG/4 ML VIAL 20 MG IV PUSH (13:06)
[2020-07-05 13:30] LABS: Hematocrit 28.9 % (37.0-46.0)
--- NOTE | 2020-07-05 16:23 | PC.NURSE ---
Patient sitting up in chair watching TV. Alert and denies pain. Blood product continues to infuse without difficulty. Port site without redness, swelling, drainage.
--- NOTE | 2020-07-05 17:22 | PC.NURSE ---
Blood product completed, Normal saline ran through line. Each port was flushed with NS and Heparin. Lab obtained via red port. Patient denies pain or c/o.
[2020-07-05 18:11] LABS: Hematocrit 30.7 % (37.0-46.0); Hemoglobin 9.8 g/dL (12.4-15.3)
== END 2020-07-05 08:26 | disposition home or self-care (01) ==
LOC: CHSTREATRM 08:27
PROVIDERS: PCP Internal Medicine; Visit Provider Internal Medicine Pulmonary Disease
DX: D64.9 Anemia, unspecified (principal); Z94.2 Lung transplant status
CPT/HCPCS: 36415; 36430; 85014; 85018; 86850; 86900; 86901; 86923; 96374; J1940; J7050; P9016

== ENCOUNTER 2020-07-09 08:49 | Outpatient (CLI) | payer MEDICARE, SELFPAY ==
--- NOTE | 2020-07-09 09:10 | PC.NURSE ---
Here for OP infusion
[2020-07-09] MEDS: HEPARIN SOD FLUSH 500 UNITS/5 ML SYRINGE IV PUSH (09:44)
== END 2020-07-09 08:50 | disposition home or self-care (01) ==
LOC: CHSTREATRM 08:54
PROVIDERS: PCP Internal Medicine; Visit Provider Internal Medicine Pulmonary Disease
DX: E88.01 Alpha-1-antitrypsin deficiency (principal)
CPT/HCPCS: 96365; J0256

== ENCOUNTER 2020-07-13 08:53 | Outpatient (CLI) | payer MEDICARE, SELFPAY ==
--- NOTE | 2020-07-13 09:05 | PC.NURSE ---
Here for op infusion and blood work, topete to left chest triple lumen,
--- NOTE | 2020-07-13 09:25 | PC.NURSE ---
Blood drawn from red port, changed cap and flushed with saline and heparin
[2020-07-13 09:35] VITALS: BP 114/64; PULSE 112
[2020-07-13] MEDS: IMMUNE GLOBULIN IVPB (09:36)
[2020-07-13 09:47] LABS: Hemoglobin 9.8 g/dL (12.4-15.3); Mean Corpuscular HGB Conc 31.6 g/dL (32.0-36.0); Mean Corpuscular Hemoglobin 30.5 pg (27.0-31.0); Mean Corpuscular Volume 96.6 fL (78.0-102.0); Mean Platelet Volume 10.1 fl (8.7-11.0); Platelet Count Result 181 K/mm3 (150-420); Red Blood Count 3.21 M/mm3 (4.70-6.10); Red Cell Distribution Width 17.2 % (11.6-14.4); White Blood Count 4.2 K/mm3 (4.8-10.8)
[2020-07-13 10:05] VITALS: BP 111/69; PULSE 109
[2020-07-13 10:24] LABS: Band Neutrophils Percent 6 % (0-6); Basophils Percent Manual 0 % (0-1); Eosinophils Absolute Manual 0.04 K/mm3 (0.02-0.5); Eosinophils Percent Manual 1 % (1-6); Lymphocytes Percent Manual 24 % (18-44); Metamyelocytes Percent 1 %; Monocytes Absolute Manual 0.25 K/mm3 (0.1-0.90); Monocytes Percent Manual 6 % (3-9); Myelocytes Percent 3 %; Neutrophils Absolute Manual 2.73 K/mm3 (1.3-6.7); Neutrophils Percent Manual 59 % (46-73); Platelet Estimate Adequate (Adequate); Total Cells Counted 100
[2020-07-13 10:40] VITALS: BP 106/64; PULSE 100
[2020-07-13 11:40] VITALS: BP 106/58; PULSE 105
[2020-07-13 12:40] VITALS: BP 102/62; PULSE 96
--- NOTE | 2020-07-13 13:17 | PC.NURSE ---
Infusion complete, dressing change to topete site completed, flushed remainder ports and changed caps, tolerated well, WC to home
[2020-07-13] MEDS: HEPARIN SOD FLUSH 500 UNITS/5 ML SYRINGE IV PUSH (13:19)
== END 2020-07-13 08:54 | disposition home or self-care (01) ==
LOC: CHSLAB 08:59 → CHSTREATRM 09:01
PROVIDERS: PCP Internal Medicine; Visit Provider Internal Medicine Pulmonary Disease
DX: D80.1 Nonfamilial hypogammaglobulinemia (principal)
CPT/HCPCS: 36415; 85025; 96365; 96366; J1459

== ENCOUNTER 2020-07-17 07:54 | Outpatient (CLI) | payer MEDICARE, SELFPAY ==
[2020-07-17] MEDS: HEPARIN SOD FLUSH 500 UNITS/5 ML SYRINGE IV PUSH (10:03)
--- NOTE | 2020-07-17 10:05 | PC.NURSE ---
Patient tolerated weekly Prolastin infusion well. No concerns. Safe exit of hospital.
== END 2020-07-17 07:55 | disposition home or self-care (01) ==
PROVIDERS: PCP Internal Medicine; Visit Provider Internal Medicine Pulmonary Disease
DX: E88.01 Alpha-1-antitrypsin deficiency (principal)
CPT/HCPCS: 96365; J0256

== ENCOUNTER 2020-07-24 08:01 | Outpatient (CLI) | payer MEDICARE, SELFPAY ==
[2020-07-24] MEDS: HEPARIN SOD FLUSH 500 UNITS/5 ML SYRINGE IV PUSH (09:27)
--- NOTE | 2020-07-24 10:27 | PC.NURSE ---
Patient tolerated weekly IV Prolastin infusion well. No concerns. Safe exit of hospital. Will return next Thursday07/31/20.
== END 2020-07-24 08:02 | disposition home or self-care (01) ==
LOC: CHSTREATRM 08:02
PROVIDERS: PCP Internal Medicine; Visit Provider Internal Medicine Pulmonary Disease
DX: E88.01 Alpha-1-antitrypsin deficiency (principal)
CPT/HCPCS: 96365; J0256

== ENCOUNTER 2020-07-31 07:44 | Outpatient (CLI) | payer MEDICARE, SELFPAY ==
[2020-07-31] MEDS: HEPARIN SOD FLUSH 500 UNITS/5 ML SYRINGE IV PUSH (09:16)
[2020-07-31 09:28] LABS: Hematocrit 29.7 % (37.0-46.0); Hemoglobin 9.1 g/dL (12.4-15.3); Mean Corpuscular HGB Conc 30.6 g/dL (32.0-36.0); Mean Corpuscular Hemoglobin 30.7 pg (27.0-31.0); Mean Corpuscular Volume 100.3 fL (78.0-102.0); Mean Platelet Volume 9.5 fl (8.7-11.0); Platelet Count Result 273 K/mm3 (150-420); Red Blood Count 2.96 M/mm3 (4.70-6.10); Red Cell Distribution Width 18.3 % (11.6-14.4); White Blood Count 7.5 K/mm3 (4.8-10.8)
[2020-07-31 09:42] LABS: Alanine Aminotransferase 12 U/L (16-63); Albumin Level 3.2 g/dL (3.4-5.0); Alkaline Phosphatase 88 U/L (46-116); Anion Gap 7 mmol/L (8-16); Aspartate Amino Transferase 31 U/L (15-37); Bilirubin,Total 0.4 mg/dL (0.00-1.00); Blood Urea Nitrogen 55 mg/dL (7-18); Calcium 8.6 mg/dL (8.5-10.1); Carbon Dioxide 33 mmol/L (21-32); Chloride 101 mmol/L (98-108); Estimated Glomerular Filt Rate 27; Glucose 124 mg/dL (70-99); Osmolality Calculated 308 mOsm/kg (285-295); Potassium 4.3 mmol/L (3.5-5.1); Sodium 141 mmol/L (136-145); Total Protein 6.2 g/dL (6.4-8.2)
[2020-07-31 09:48] LABS: Band Neutrophils Percent 0 % (0-6); Basophils Percent Manual 0 % (0-1); Eosinophils Percent Manual 0 % (1-6); Lymphocytes Absolute Manual 0.67 K/mm3 (1.1-4.5); Lymphocytes Percent Manual 9 % (18-44); Monocytes Absolute Manual 0.52 K/mm3 (0.1-0.90); Monocytes Percent Manual 7 % (3-9); Neutrophils Percent Manual 84 % (46-73); Platelet Estimate Adequate (Adequate); Total Cells Counted 100
--- NOTE | 2020-07-31 09:55 | PC.NURSE ---
Patient tolerated weekly Prolastin IV infusion well. No concerns voiced. Safe exit of hospital. Will return next Thursday.
[2020-08-03 01:23] LABS: Tacrolimus Prograf 4.7 mcg/L
== END 2020-07-31 07:45 | disposition home or self-care (01) ==
LOC: CHSTREATRM 07:47
PROVIDERS: PCP Internal Medicine; Visit Provider Internal Medicine Pulmonary Disease
DX: E88.01 Alpha-1-antitrypsin deficiency (principal); Z48.24 Encounter for aftercare following lung transplant
CPT/HCPCS: 36415; 80053; 80197; 85025; 96365; J0256

== ENCOUNTER 2020-08-07 07:57 | Outpatient (CLI) | payer MEDICARE, SELFPAY ==
--- NOTE | 2020-08-07 09:25 | PC.NURSE ---
Pt to room 229 amb per self. A&Ox3. Has no questions or concerns. Oriented to room. Call conner in reach. Reminded to call with needs.
[2020-08-07] MEDS: HEPARIN SOD FLUSH 500 UNITS/5 ML SYRINGE IV PUSH (10:03)
--- NOTE | 2020-08-07 10:15 | PC.NURSE ---
Prolastin infused as ordered. Pt tolerated well. Caps changed on all 3 [place] catheter lines. All 3 lines flushed with NS and Heparin. Blood return noted on each line and all flushed with ease. Old dressing removed, site cleansed with chloraprep. Site without redness, edema or drainage. New dressing placed. Pt tolerated well. Has no questions or complaints. Discharged to home amb per self.
== END 2020-08-07 07:58 | disposition home or self-care (01) ==
PROVIDERS: PCP Internal Medicine; Visit Provider Internal Medicine Pulmonary Disease
DX: E88.01 Alpha-1-antitrypsin deficiency (principal)
CPT/HCPCS: 96365; J0256

== ENCOUNTER 2020-08-10 08:44 | Outpatient (CLI) | payer MEDICARE, SELFPAY ==
[2020-08-10 09:25] VITALS: BP 109/54; PULSE 102; RESP 18; TEMP 36.6; O2SAT 95
[2020-08-10] MEDS: IMMUNE GLOBULIN IVPB (09:29)
[2020-08-10 10:05] VITALS: BP 107/56; PULSE 64; RESP 18; TEMP 36.6; O2SAT 95
[2020-08-10 10:30] VITALS: BP 108/64; PULSE 108; RESP 20; TEMP 36.6; O2SAT 94
[2020-08-10 12:25] VITALS: BP 106/56; PULSE 110; RESP 18; TEMP 36.6; O2SAT 94
[2020-08-10 13:20] VITALS: BP 102/62; PULSE 98; RESP 18; TEMP 36.8; O2SAT 96
[2020-08-10] MEDS: HEPARIN SOD FLUSH 500 UNITS/5 ML SYRINGE IV PUSH (13:25)
== END 2020-08-10 08:45 | disposition home or self-care (01) ==
PROVIDERS: PCP Internal Medicine; Visit Provider Internal Medicine Pulmonary Disease
DX: D80.1 Nonfamilial hypogammaglobulinemia (principal)
CPT/HCPCS: 96365; 96366; J1459

== ENCOUNTER 2020-08-14 07:53 | Outpatient (CLI) | payer MEDICARE, SELFPAY ==
[2020-08-14] MEDS: HEPARIN SOD FLUSH 500 UNITS/5 ML SYRINGE IV PUSH (09:23)
[2020-08-14 09:31] VITALS: BP 117/60; PULSE 88; RESP 18; TEMP 36.4; O2SAT 97
--- NOTE | 2020-08-14 09:58 | PC.NURSE ---
Patient tolerated weekly Prolastin infusion well. No concerns voiced. Safe exit of hospital. Will return next August 21.
== END 2020-08-14 07:54 | disposition home or self-care (01) ==
LOC: CHSTREATRM 07:55
PROVIDERS: PCP Internal Medicine; Visit Provider Internal Medicine Pulmonary Disease
DX: E88.01 Alpha-1-antitrypsin deficiency (principal)
CPT/HCPCS: 96365; J0256

== ENCOUNTER 2020-08-16 14:19 | Outpatient (CLI) | payer MEDICARE, SELFPAY ==
[2020-08-16 15:42] LABS: SARS-CoV-2 RNA PCR Negative (Negative)
== END 2020-08-16 14:20 | disposition home or self-care (01) ==
LOC: CHSLAB 14:21
PROVIDERS: PCP Internal Medicine; Visit Provider Internal Medicine Pulmonary Disease
DX: R50.9 Fever, unspecified (principal); Z20.822 Contact with and (suspected) exposure to COVID-19
CPT/HCPCS: C9803; U0003; U0005

== ENCOUNTER 2020-08-21 08:03 | Outpatient (CLI) | payer MEDICARE, SELFPAY ==
[2020-08-21 08:20] LABS: Appearance Urine Clear (Clear); Bilirubin Urine Negative (Negative); Color Urine Yellow (Yellow); Glucose Urine UA Negative (Negative); Ketones Urine Negative (Negative); Leukocyte Esterase Ur Negative (Negative); Nitrate Urine Negative (Negative); Protein Urine Negative (Negative); Urobilinogen Urine 0.2 mg/dL (0.2-1.0)
[2020-08-21 08:34] LABS: Add Urine Microscopic? YES; Bacteria Urine 2+ /hpf; Blood Urine Trace-Intact (Negative); Mucus Urine Heavy /lpf; Squamous Epithelial Cell Urine Occasional /hpf (Few); WBC Urine 16-20 /hpf (0-3)
[2020-08-21] MEDS: HEPARIN SOD FLUSH 500 UNITS/5 ML SYRINGE IV PUSH (09:26)
[2020-08-21 09:32] VITALS: BP 109/60; PULSE 92; RESP 16; TEMP 36.6; O2SAT 97
--- NOTE | 2020-08-21 10:07 | PC.NURSE ---
Tolerated weekly Prolastin IV infusion well. No concerns voiced. Will return Th. August 30. Safe exit of hospital.
== END 2020-08-21 08:04 | disposition home or self-care (01) ==
PROVIDERS: PCP Internal Medicine; Visit Provider Internal Medicine Pulmonary Disease
DX: E88.01 Alpha-1-antitrypsin deficiency (principal); Z48.24 Encounter for aftercare following lung transplant; D64.9 Anemia, unspecified; R50.9 Fever, unspecified; R10.9 Unspecified abdominal pain
CPT/HCPCS: 81001; 87086; 87088; 96365; J0256

== ENCOUNTER 2020-08-30 07:48 | Outpatient (CLI) | payer MEDICARE, SELFPAY ==
[2020-08-30 09:23] VITALS: BP 130/85; PULSE 88; RESP 14; O2SAT 97
[2020-08-30] MEDS: HEPARIN SOD FLUSH 500 UNITS/5 ML SYRINGE IV PUSH (09:28)
--- NOTE | 2020-08-30 09:49 | PC.NURSE ---
Patient tolerated weekly IV Prolastin infusion well. No concerns. Will return next 09/06. Safe exit of hospital.
== END 2020-08-30 07:49 | disposition home or self-care (01) ==
LOC: CHSLAB 07:49 → CHSTREATRM 07:51
PROVIDERS: PCP Internal Medicine; Visit Provider Internal Medicine Pulmonary Disease
DX: E88.01 Alpha-1-antitrypsin deficiency (principal)
CPT/HCPCS: 96365; J0256

== ENCOUNTER 2020-09-06 07:52 | Outpatient (CLI) | payer MEDICARE, SELFPAY ==
[2020-09-06] MEDS: HEPARIN SOD FLUSH 500 UNITS/5 ML SYRINGE IV PUSH (09:21)
== END 2020-09-06 07:53 | disposition home or self-care (01) ==
LOC: CHSTREATRM 07:54
PROVIDERS: PCP Internal Medicine; Visit Provider Internal Medicine Pulmonary Disease
DX: E88.01 Alpha-1-antitrypsin deficiency (principal)
CPT/HCPCS: 96365; J0256

== ENCOUNTER 2020-09-07 09:04 | Outpatient (CLI) | payer MEDICARE, SELFPAY ==
[2020-09-07] MEDS: HEPARIN SOD FLUSH 500 UNITS/5 ML SYRINGE IV PUSH (09:38)
[2020-09-07] MEDS: IMMUNE GLOBULIN IVPB (09:39)
[2020-09-07 09:40] VITALS: BP 132/54; PULSE 84; RESP 22; TEMP 36.6; O2SAT 99
[2020-09-07 10:12] VITALS: BP 114/64; PULSE 100; RESP 20; TEMP 36.6; O2SAT 100
[2020-09-07 13:10] VITALS: BP 124/74; PULSE 100; RESP 20; O2SAT 98
[2020-09-07 14:29] VITALS: BP 138/74; PULSE 102; RESP 20; TEMP 36.6; O2SAT 98
== END 2020-09-07 09:05 | disposition home or self-care (01) ==
LOC: CHSTREATRM 09:06
PROVIDERS: PCP Internal Medicine; Visit Provider Internal Medicine Pulmonary Disease
DX: D80.1 Nonfamilial hypogammaglobulinemia (principal)
CPT/HCPCS: 96365; 96366; J1459

== ENCOUNTER 2020-09-14 09:01 | Outpatient (CLI) | payer MEDICARE, SELFPAY ==
--- NOTE | 2020-09-14 09:10 | PC.NURSE ---
Here for OP infusion
[2020-09-14] MEDS: HEPARIN SOD FLUSH 500 UNITS/5 ML SYRINGE IV PUSH (09:36)
--- NOTE | 2020-09-14 10:20 | PC.NURSE ---
discharge to home infusion tolerated well
== END 2020-09-14 09:02 | disposition home or self-care (01) ==
LOC: CHSTREATRM 09:02
PROVIDERS: PCP Internal Medicine; Visit Provider Internal Medicine Pulmonary Disease
DX: E88.01 Alpha-1-antitrypsin deficiency (principal)
CPT/HCPCS: 96365; J0256

== ENCOUNTER 2020-09-21 09:05 | Outpatient (CLI) | payer MEDICARE, SELFPAY ==
[2020-09-21] MEDS: HEPARIN SOD FLUSH 500 UNITS/5 ML SYRINGE IV PUSH (09:42)
[2020-09-21 10:12] LABS: Hematocrit 28.4 % (37.0-46.0); Hemoglobin 8.4 g/dL (12.4-15.3); Mean Corpuscular HGB Conc 29.6 g/dL (32.0-36.0); Mean Corpuscular Hemoglobin 32.2 pg (27.0-31.0); Mean Corpuscular Volume 108.8 fL (78.0-102.0); Mean Platelet Volume 9.9 fl (8.7-11.0); Platelet Count Result 164 K/mm3 (150-420); Red Blood Count 2.61 M/mm3 (4.70-6.10); Red Cell Distribution Width 17.3 % (11.6-14.4); White Blood Count 6.1 K/mm3 (4.8-10.8)
[2020-09-21 10:43] LABS: Alanine Aminotransferase 17 U/L (16-63); Albumin Level 2.9 g/dL (3.4-5.0); Alkaline Phosphatase 105 U/L (46-116); Anion Gap 7 mmol/L (8-16); Aspartate Amino Transferase 26 U/L (15-37); Bilirubin,Total 0.4 mg/dL (0.00-1.00); Blood Urea Nitrogen 44 mg/dL (7-18); Calcium 8.4 mg/dL (8.5-10.1); Carbon Dioxide 31 mmol/L (21-32); Chloride 106 mmol/L (98-108); Estimated Glomerular Filt Rate 30; Glucose 191 mg/dL (70-99); Osmolality Calculated 314 mOsm/kg (285-295); Potassium 4.2 mmol/L (3.5-5.1); Sodium 144 mmol/L (136-145); Total Cells Counted 100; Total Protein 5.5 g/dL (6.4-8.2)
[2020-09-21 10:44] LABS: Band Neutrophils Percent 2 % (0-6); Lymphocytes Absolute Manual 0.85 K/mm3 (1.1-4.5); Lymphocytes Percent Manual 14 % (18-44); Monocytes Absolute Manual 0.54 K/mm3 (0.1-0.90); Monocytes Percent Manual 9 % (3-9); Myelocytes Percent 1 %; Neutrophils Absolute Manual 4.63 K/mm3 (1.3-6.7); Neutrophils Percent Manual 74 % (46-73)
--- NOTE | 2020-09-21 10:58 | PC.NURSE ---
1030 IV FINISHES. ALL LINES FLUSHED AND NEW CAPS. NEW DRG. BLOOD DRAWN FROM LINES PRIOR TX
[2020-09-21 11:12] LABS: Platelet Estimate Adequate (Adequate)
[2020-09-25 09:52] LABS: Tacrolimus Prograf 4.8 mcg/L
== END 2020-09-21 09:06 | disposition home or self-care (01) ==
LOC: CHSLAB 09:10
PROVIDERS: PCP Internal Medicine; Visit Provider Internal Medicine Pulmonary Disease
DX: E88.01 Alpha-1-antitrypsin deficiency (principal)
CPT/HCPCS: 36415; 80053; 80197; 85025; 96365; J0256

== ENCOUNTER 2020-09-27 07:53 | Outpatient (CLI) | payer MEDICARE, SELFPAY ==
[2020-09-27] MEDS: HEPARIN SOD FLUSH 500 UNITS/5 ML SYRINGE IV PUSH (09:48)
--- NOTE | 2020-09-27 09:59 | PC.NURSE ---
Patient here for weekly Prolastin IV infusion. No concerns voiced. Prolastin administered. Tolerated well. Safe exit of hospital. Will return next Thurs.
[2020-09-27 10:04] VITALS: BP 126/80; PULSE 80; RESP 14; O2SAT 96
[2020-10-01 04:31] LABS: Vitamin D 25 Hydroxy 41 ng/mL (30-100)
== END 2020-09-27 07:54 | disposition home or self-care (01) ==
LOC: CHSLAB 07:58 → CHSTREATRM 08:05
PROVIDERS: PCP Internal Medicine; Visit Provider Internal Medicine Pulmonary Disease
DX: E88.01 Alpha-1-antitrypsin deficiency (principal); E55.9 Vitamin D deficiency, unspecified
CPT/HCPCS: 36415; 82306; 96365; J0256

== ENCOUNTER 2020-10-04 07:57 | Outpatient (CLI) | payer MEDICARE, SELFPAY ==
[2020-10-04] MEDS: HEPARIN SOD FLUSH 500 UNITS/5 ML SYRINGE IV PUSH (09:48)
[2020-10-04 09:49] VITALS: BP 126/74; PULSE 88; RESP 18; TEMP 36.6; O2SAT 96
--- NOTE | 2020-10-04 09:50 | PC.NURSE ---
Patient here for weekly Prolastin IV infusion. No concerns voiced. IV Prolastin infusion administered. Tolerated well. Safe exit of hospital. Will return next Sunday October 11, 2020.
== END 2020-10-04 07:58 | disposition home or self-care (01) ==
LOC: CHSTREATRM 08:00
PROVIDERS: PCP Internal Medicine; Visit Provider Internal Medicine Pulmonary Disease
DX: E88.01 Alpha-1-antitrypsin deficiency (principal)
CPT/HCPCS: 96365; J0256

== ENCOUNTER 2020-10-05 08:58 | Outpatient (CLI) | payer MEDICARE, SELFPAY ==
[2020-10-05 09:07] VITALS: BMI 26.6
[2020-10-05 09:11] VITALS: BP 138/80; PULSE 102; RESP 20; TEMP 35.9; O2SAT 96
[2020-10-05] MEDS: IMMUNE GLOBULIN IVPB (09:23)
[2020-10-05] MEDS: HEPARIN SOD FLUSH 500 UNITS/5 ML SYRINGE IV PUSH (13:57)
[2020-10-05 13:59] VITALS: PULSE 72; RESP 20; O2SAT 97
--- NOTE | 2020-10-05 14:04 | PC.NURSE ---
Patient tolerated his monthly IVIG IV infusion well. No concerns voiced. Will be back next month. Safe exit of hospital.
== END 2020-10-05 08:59 | disposition home or self-care (01) ==
LOC: CHSTREATRM 09:01
PROVIDERS: PCP Internal Medicine; Visit Provider Internal Medicine Pulmonary Disease
DX: D80.1 Nonfamilial hypogammaglobulinemia (principal)
CPT/HCPCS: 96365; 96366; J1459

== ENCOUNTER 2020-10-12 08:27 | Outpatient (CLI) | payer MEDICARE, SELFPAY ==
[2020-10-12] MEDS: HEPARIN SOD FLUSH 500 UNITS/5 ML SYRINGE IV PUSH (09:08)
[2020-10-12 09:10] VITALS: BP 147/90; PULSE 118; RESP 14
--- NOTE | 2020-10-12 10:02 | PC.NURSE ---
Patient tolerated weekly IV Prolastin infusion well. No concerns voiced. Safe exit of hospital. Will return next October
== END 2020-10-12 08:28 | disposition home or self-care (01) ==
LOC: CHSTREATRM 08:30
PROVIDERS: PCP Internal Medicine; Visit Provider Internal Medicine Pulmonary Disease
DX: E88.01 Alpha-1-antitrypsin deficiency (principal)
CPT/HCPCS: 96365; J0256

== ENCOUNTER 2020-10-18 08:07 | Outpatient (CLI) | payer MEDICARE, SELFPAY ==
[2020-10-18 09:10] VITALS: BP 125/74; PULSE 91; RESP 18; TEMP 36.9
[2020-10-18 09:26] LABS: Hematocrit 25.6 % (37.0-46.0); Hemoglobin 7.4 g/dL (12.4-15.3); Mean Corpuscular HGB Conc 28.9 g/dL (32.0-36.0); Mean Corpuscular Volume 110.8 fL (78.0-102.0); Mean Platelet Volume 10.2 fl (8.7-11.0); Platelet Count Result 183 K/mm3 (150-420); Red Blood Count 2.31 M/mm3 (4.70-6.10); Red Cell Distribution Width 16.1 % (11.6-14.4); White Blood Count 5.9 K/mm3 (4.8-10.8)
--- NOTE | 2020-10-18 09:48 | PC.NURSE ---
Patient here for weekly IV Prolastin infusion. Just came from [facility]- reports unsteady (wobbly) on feet and has more c/o short of breath over in cardiac rehab. VSS see anatoly. Obdulia RN notified patient's PCP Dr. Scott- he ordered CBC. Lab work drawn from [facility] line red lumen and sent to lab. Prolastin IV infusion administered. Lab results back H/H 7.4/25.[address] Scott[address]. Scott states need to call one his specialist. Patient prefers us to call [facility]. Dr. Gunter notified. Awaiting call from his nurse Mitzi.
[2020-10-18 09:52] VITALS: O2SAT 100
[2020-10-18] MEDS: HEPARIN SOD FLUSH 500 UNITS/5 ML SYRINGE IV PUSH (10:00)
--- NOTE | 2020-10-18 10:18 | PC.NURSE ---
1000 Patient tolerated IV Prolastin well. Decided to go home. Instructed when Dr. Gunter office calls back with orders etc will call patient at home. Patient with minimal shortness of breath at rest noted. VSS. Patient using his portable o2 tank. Safe exit of hospital per wheelchair. Faxed lab results to Dr. Gunter #[phone]. Awaiting call back.
[2020-10-18 11:39] LABS: Band Neutrophils Percent 2 % (0-6); Lymphocytes Absolute Manual 1.35 K/mm3 (1.1-4.5); Lymphocytes Percent Manual 23 % (18-44); Metamyelocytes Percent 3 %; Monocytes Absolute Manual 0.35 K/mm3 (0.1-0.90); Monocytes Percent Manual 6 % (3-9); Myelocytes Percent 5 %; Neutrophils Absolute Manual 3.71 K/mm3 (1.3-6.7); Neutrophils Percent Manual 61 % (46-73); Total Cells Counted 100
[2020-10-18 11:40] LABS: Nucleated Red Blood Cells 1 %; Platelet Estimate Adequate (Adequate)
--- NOTE | 2020-10-18 12:05 | PC.NURSE ---
1030 Dr. Philip office called back and reported they were going to get a hold of patient for him to come to [place] today to be seen. 1130 Patient called and reported he was heading to [place] to be seen.
== END 2020-10-18 08:08 | disposition home or self-care (01) ==
LOC: CHSTREATRM 08:09
PROVIDERS: PCP Internal Medicine; Visit Provider Internal Medicine Pulmonary Disease
DX: E88.01 Alpha-1-antitrypsin deficiency (principal); D64.9 Anemia, unspecified
CPT/HCPCS: 36415; 85025; 85027; 96365; J0256

== ENCOUNTER 2020-11-01 08:00 | Outpatient (RCR) | payer MEDICARE, SELFPAY ==
--- NOTE | 2020-05-29 12:13 | PCCPR ---
PAYMENT REC'D FOR APRIL PHASE 3 CHARGES. CHECK # [phone] $53.00.
== END 2020-11-06 07:49 | disposition expired ==
LOC: CHSCPRIII 08:00
PROVIDERS: PCP Internal Medicine; Visit Provider Internal Medicine
DX: J44.9 Chronic obstructive pulmonary disease, unspecified (principal); Z94.2 Lung transplant status
CPT/HCPCS: 99199